=== PATIENT | female | born 1975 | race Caucasian/White ===

== ENCOUNTER → 2016-07-25 | Outpatient (CLI) | payer BC ==
--- NOTE | 2016-07-28 13:20 | MM ---
Reason for exam: screening (asymptomatic). Last mammogram was performed 2 years and 4 months ago. Physical Findings: A clinical breast exam by your physician is recommended on an annual basis and results should be correlated with mammographic findings. MG Screening Mammo w CAD Bilateral CC and MLO view(s) were taken. Prior study comparison: March 24, 2014, bilateral MG screening mammo w CAD. The breast tissue is almost entirely fat. No significant changes when compared with prior studies. ASSESSMENT: Negative, BI-RAD 1 RECOMMENDATION: Routine screening mammogram of both breasts in 1 year.
== END | disposition home or self-care (01) ==
LOC: RADMAMWWP 09:50
PROVIDERS: ATTEND Family Medicine
DX: Z12.31 Encounter for screening mammogram for malignant neoplasm of breast (principal)

== ENCOUNTER → 2016-07-27 | Outpatient (CLI) | payer BC ==
[2016-07-27 09:47] VITALS: BP 116/77; PULSE 112; RESP 15; TEMP 98.1; BMI 50.4
[2016-07-27 10:59] LABS: EKG EKG PERFORMED
[2016-07-27 11:42] LABS: CH 30.3; CHCM 33.4; HCT 45.8 % (34.0-46.0); HDW 2.73; HGB 14.9 gm/dL (11.4-16.0); MCH 29.7 pg (25.0-35.0); MCHC 32.5 g/dL (31.0-37.0); MCV 91.4 fL (80.0-100.0); Mean Platelet Volume 6.5; RBC 5.01 m/uL (3.80-5.40); RDW 13.4 % (11.5-15.5); WBC 9.4 k/uL (3.8-10.6)
[2016-07-27 11:52] LABS: ALT 41 U/L (9-52); AST 21 U/L (14-36); Alkaline Phosphatase 36 U/L (38-126); Anion Gap 6 mmol/L; Blood Urea Nitrogen 15 mg/dL (7-17); Calcium 8.9 mg/dL (8.4-10.2); Carbon Dioxide 25 mmol/L (22-30); Chloride 109 mmol/L (98-107); Cholesterol 171 mg/dL (<200); Glucose 70 mg/dL (74-99); HDL Cholesterol 50 mg/dL (40-60); Iron 73 ug/dL (37-170); Non-African American GFR(MDRD) >60 (>60 ml/min/1.73 sqM); Potassium 4.1 mmol/L (3.5-5.1); Sodium 140 mmol/L (137-145); Total Bilirubin 0.9 mg/dL (0.2-1.3); Total Protein 5.6 g/dL (6.3-8.2); Triglycerides 208 mg/dL (<150)
[2016-07-27 12:09] LABS: % Iron Saturation 23.9 % (20-50); Total Iron Binding Capacity 306 ug/dL (265-497)
[2016-07-27 13:04] LABS: Vitamin B12 280 pg/mL (239-931)
[2016-07-27 13:31] LABS: Hemoglobin A1C 5.3 % (4.2-6.1)
--- NOTE | 2016-09-11 22:55 | CONS ---
DATE OF CONSULTATION: 07/27/2016. CHIEF COMPLAINT: Initial bariatric assessment: HISTORY OF PRESENT ILLNESS: Maia Duron is a 41-year-old female who presents for the first time with regards to bariatric assessment. She does have history of adjustable gastric band which she has had moderate troubles including intolerance to adjustments. She comes in today at her height of 5 feet 1.8 inches. Her present weight is 274 pounds. Body mass index of 50.4. [place] body weight 131 pounds. She is 142 pounds overweight. Her highest weight and BMI is 51.8. She reports vomiting including dysphagia with her band. She has also gained weight despite having her band. She developed lower back pain, including bilateral hip pain. She reports knee pain where the right is worse than the left as well as bilateral ankle swelling. She also has snoring with sleep apnea. She has now been diagnosed with hypothyroidism. She has tried caloric restriction including adjustable band where still has troubles with weight loss. Now she presents for further evaluation and management. She does report irritable bowel syndrome, possible Crohn's. She does have family history of diabetes as well as troubles with obesity. PAST MEDICAL HISTORY: 1. Asthma. 2. Seasonal allergies. 3. Hypothyroidism. 4. Obstructive sleep apnea. 5. Osteoarthritis of bilateral knees. 6. Osteoarthritis of bilateral. 7. Bilateral ankle pain secondary to osteoarthritis. 8. Postoperative nausea and vomiting. MEDICATIONS: 1. Singulair. 2. Flonase. 3. Nexium. 4. Zyrtec. ALLERGIES: Denies. SOCIAL HISTORY: History of alcohol use. Denies any tobacco use. FAMILY HISTORY: Pertinent for diabetes. No family history of lupus. Personal family history of irritable bowel syndrome including Crohn's disease. Also has history of morbid obesity. REVIEW OF SYSTEMS: CONSTITUTIONAL: [place] body weight of 131 pounds for her height of 5 feet 1 inches. Body mass index of 51.8. She is 143 pounds overweight. Present weight is 274 pounds. HEENT: No reports of dysphagia or troubles with hearing. Has history of dysphagia with adjustable gastric band. ENDOCRINE: History of thyroid disorders. Denies any diabetes. RESPIRATORY: Has dyspnea on exertion with asthma. Also obstructive sleep apnea. CARDIOVASCULAR: No reports of chest pain or heart attack. GASTROINTESTINAL: Gastroesophageal reflux disease. No reports of blood in stools. No diarrhea, constipation. MUSCULOSKELETAL: Has diffuse osteoarthritis, including problems with bilateral hips, bilateral knees including bilateral ankles. NEUROLOGICAL: No recent stroke or seizure disorder. PSYCHIATRY: Has depression. No reports of suicidal ideation. HEMATOLOGIC: Denies easy bruising or bleeding. PHYSICAL EXAM: VITAL SIGNS: 98.1, 112, 15, 116/77; 5 feet 1 inch, 274 pounds. Body mass index of 51.8. GENERAL: Well-developed female in no acute distress. HEENT: No scleral icterus. Extraocular movements intact. Moist buccal mucosa. NECK: Supple without lymphadenopathy. CHEST: Nonlabored respirations with equal bilateral excursions. CARDIOVASCULAR: Tachycardic. Palpable 2+ distal pulses. NEURO: No focal or lateralizing signs. Cranial nerves 2 through 12 grossly within normal limits. PSYCH: Appropriate affect. Alert and oriented to person, place, and time. LABS: White count 9.4. Hemoglobin 14.9. Chloride 109. Glucose low at 70. Hemoglobin A1C normal at 5.3. Alkaline phosphatase low at 36. Total protein low at 5.6. Triglycerides low at 208. Vitamin D low at 11.7. EKG findings consistent with incomplete right bundle branch block including frequent premature ventricular complexes. ASSESSMENT: 1. Moderate obesity due to excess calories. 2. Body mass index of 51.8. 3. History of obstructive sleep apnea. 4. History of tachycardia. 5. Abnormal EKG. 6. Family history of diabetes type 2. 7. Family history of morbid obesity. 8. Osteoarthritis of the lower back. 9. Osteoarthritis bilateral hips. 10. Osteoarthritis of the bilateral knees. 11. Osteoarthritis of bilateral ankles. 12. Complication of adjustable gastric band. 13. Intolerance to adjustable gastric band. 14. Hypertriglyceridemia. 15. Vitamin D deficiency. PLAN: 1. She has completed a bariatric metabolic panel. 2. TSH level was within normal limits. 3. She has abnormal EKG and as a result recommend evaluation by the ecological economist. 4. Recommend psych assessment per insurance guideline. 5. Medical risk assessment per insurance guidelines. 6. Recommend evaluation by bariatric dietitian regarding bariatric plan, and bariatric diet. 7. Recommend upper endoscopy for further evaluation and management. 8. [place] [facility] collaborative data was reviewed in detail. As she has a band, alternatives including gastrectomy-type such as a sleeve and Adam-En-Y gastric bypass may be a benefit. Thank you very much for this kind consultation. SUMAN
== END | disposition home or self-care (01) ==
LOC: BARWHC3 09:10
PROVIDERS: ATTEND Surgery Plastic and Reconstructive Surgery
DX: Z01.818 Encounter for other preprocedural examination (principal); E66.01 Morbid (severe) obesity due to excess calories; E89.1 Postprocedural hypoinsulinemia; E88.81 Metabolic syndrome and other insulin resistance; D50.8 Other iron deficiency anemias; E44.0 Moderate protein-calorie malnutrition; E55.9 Vitamin D deficiency, unspecified; Z68.43 Body mass index [BMI] 50.0-59.9, adult; G47.30 Sleep apnea, unspecified; E03.9 Hypothyroidism, unspecified; Z72.820 Sleep deprivation
CPT/HCPCS: 80053; 80061; 82306; 82607; 82728; 82746; 83036; 83540; 83550; 84425; 84443; 85027; 93005; 99201

== ENCOUNTER 2016-08-16 09:26 | Day surgery (SDC) | payer BC ==
[2016-08-10 16:09] VITALS: BMI 52.0
[~2016-08-16 09:26] MED LIST: LIDOCAINE 1% 20 ML VIAL (10MG/ML) FOR IV START INTRADERMA PRN
[2016-08-16 09:51] VITALS: RESP 16; TEMP 97.3
[2016-08-16] MEDS: LACTATED RINGERS 1,000 ML IV SCH ×2 (09:58→10:42)
[2016-08-16] MEDS ORDERED: PROPOFOL 10 MG/ML 20 ML VIAL IV ONE (10:44)
[2016-08-16] MEDS ORDERED: LIDOCAINE 1% INJ 10MG/ML (20 ML MDV) ONE (10:44)
--- NOTE | 2016-08-16 10:55 | P.GSHP ---
History of Present Illness H&P Date: 08/16/16 CHIEF COMPLAINT: GERD HISTORY OF PRESENT ILLNESS: The patient is a 41-year-old female who presents reports gastroesophageal reflux disease. Upper endoscopy was offered for further evaluation and management. PAST MEDICAL HISTORY: Please see list. PAST SURGICAL HISTORY: Please see list. MEDICATIONS: Please see list. ALLERGIES: Please see list. SOCIAL HISTORY: No illicit drug use FAMILY HISTORY: No reports of Crohn disease or ulcerative colitis. REVIEW OF ORGAN SYSTEMS: CONSTITUTIONAL: No reports of fevers or chills. GI: Denies any blood in stools or constipation. PHYSICAL EXAM: VITAL SIGNS: Stable GENERAL: Well-developed and pleasant in no acute distress. HEENT: No scleral icterus. Extraocular movements grossly intact. Moist buccal mucosa. NECK: Supple without lymphadenopathy. CHEST: Unlabored respirations. Equal bilateral excursions. CARDIOVASCULAR: Regular rate and rhythm. Distal 2+ pulses. ABDOMEN: Soft, nondistended. MUSCULOSKELETAL: No clubbing, cyanosis, or edema. ASSESSMENT: 1. Gastroesophageal reflux disease PLAN: 1. Recommend proceeding with an upper endoscopy Past Medical History Past Medical History: Asthma, Osteoarthritis (OA), Thyroid Disorder Additional Past Medical History / Comment(s): HYPOTHYROIDISM, mild asthma, back pain, bilateral hip/knee pain (right knee greater than left), bilateral ankle pain with notable swelling in bilateral feet/ankles. History of Any Multi-Drug Resistant Organisms: None Reported Past Surgical History: Bariatric Surgery, Section, Tubal Ligation, Uterine Ablation Additional Past Surgical History / Comment(s): lap band 2008, uterine ablation 2008, x2 Past Anesthesia/Blood Transfusion Reactions: Postoperative Nausea & Vomiting ( PONV) Additional Past Anesthesia/Blood Transfusion Reaction / Comment(s): states that she thinks she is really groggy "for a long time after". 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 No problems with child #2 . Smoking Status: Never smoker Past Alcohol Use History: Rare Additional Past Alcohol Use History / Comment(s): one drink/q3-4mos. Past Drug Use History: None Reported - Past Family History Father Family Medical History: Diabetes Mellitus Additional Family Medical History / Comment(s): morbidly obese, joint replacements bilateral knee, wheelchair bound due to weight/joint problems Mother Additional Family Medical History / Comment(s): morbidly obese, joint replacements bilateral knee Sister(s) Family Medical History: Diabetes Mellitus Additional Family Medical History / Comment(s): sister #1= no hx. sister #2= Frequent BM's (possible IBS) Medications and Allergies Home Medications Medication Instructions Recorded Confirmed Type Cetirizine HCl [Zyrtec] 10 mg PO DAILY 07/27/16 08/16/16 History Fluticasone Propionate [Flonase 1 spray EA NOSTRIL BID 07/27/16 08/16/16 History Allergy Relief] Montelukast [Singulair] 10 mg PO DAILY 07/27/16 08/16/16 History Allergies Allergy/AdvReac Type Severity Reaction Status Date / Time No Known Allergies Allergy Verified 08/10/16 15:51 Surgical - Exam Vital Signs Temp Pulse Resp BP Pulse Ox 97.3 F L 87 16 139/83 98 08/16/16 09:48 08/16/16 09:48 08/16/16 09:48 08/16/16 09:48 08/16/16 09:48
--- NOTE | 2016-08-16 10:58 | P.PCN ---
Date of Procedure: 08/16/16 Preoperative Diagnosis: Postoperative Diagnosis: Procedure(s) Performed: Implants: Indications for Procedure: Operative Findings: Description of Procedure: PREOPERATIVE DIAGNOSIS: Gastroesophageal reflux disease. History of adjustable gastric band. Morbid obesity. Dysphagia. POSTOPERATIVE DIAGNOSIS: Gastroesophageal reflux disease. History of adjustable gastric band. Morbid obesity. Erosive esophagitis. Dysphagia. OPERATION: Esophagogastroduodenoscopy with biopsies along antrum. SURGEON: Denisse Haddad MD ANESTHESIA: MAC. INDICATIONS: The patient is a 41-year-old female who presents with a history of reflux disease and intolerance to her adjustable gastric band. Benefits and risks of the procedure were described. Informed consent was obtained. DESCRIPTION: The patient was brought into the endoscopy suite and laid in the left lateral decubitus position. An Olympus gastroscope was passed along the posterior oropharynx down to the distal esophagus where the squamocolumnar junction was encountered at 38 cm from the incisors. The stomach was entered and minimal bile reflux was found. Additional findings are listed below. Biopsies with cold forceps were obtained of the antrum. The first through third portion of the duodenum was examined and unremarkable. Retroflexion of the scope confirmed Hill grade I lower esophageal valve. No full thickness erosion of adjustable gastric band was identified. The squamocolumnar junction demostrated LA grade C erosive esophagitis. The stomach was desufflated. The patient tolerated the procedure well. FINDINGS: Squamocolumnar junction 38 cm from the incisors. Diaphragmatic hiatus at 40 cm from the incisors. Hill grade I lower esophageal valve. LA grade C erosive esophagitis. No active duodenitis. No full thickness erosion of adjustable gastric band. RECOMMENDATIONS: Upper endoscopy as needed. Plan - Discharge Summary New Discharge Prescriptions: No Action Montelukast [Singulair] 10 mg PO DAILY Fluticasone Propionate [Flonase Allergy Relief] 1 spray EA NOSTRIL BID Cetirizine HCl [Zyrtec] 10 mg PO DAILY Discharge Medication List Cetirizine HCl [Zyrtec] 10 mg PO DAILY 07/27/16 [History] Fluticasone Propionate [Flonase Allergy Relief] 1 spray EA NOSTRIL BID 07/27/16 [History] Montelukast [Singulair] 10 mg PO DAILY 07/27/16 [History]
[2016-08-16 11:30] VITALS: BP 114/58; PULSE 77
== END 2016-08-16 11:43 | disposition home or self-care (01) ==
LOC: ORWHC2ENDO 09:26
PROVIDERS: ATTEND Surgery Plastic and Reconstructive Surgery
DX: K29.50 Unspecified chronic gastritis without bleeding (principal); E66.01 Morbid (severe) obesity due to excess calories; R13.10 Dysphagia, unspecified; K21.0 Gastro-esophageal reflux disease with esophagitis; Z98.84 Bariatric surgery status; E03.9 Hypothyroidism, unspecified; J45.909 Unspecified asthma, uncomplicated; Z79.899 Other long term (current) drug therapy; Z79.51 Long term (current) use of inhaled steroids; Z68.43 Body mass index [BMI] 50.0-59.9, adult
CPT/HCPCS: 81025; 88305; 88342; 43239; J2001; J2704

== ENCOUNTER → 2016-08-30 | Outpatient (CLI) | payer BC ==
[2016-08-30 15:06] VITALS: BP 124/78; PULSE 87; RESP 16; TEMP 98.7; BMI 52.2
--- NOTE | 2016-09-19 18:55 | P.PN ---
Progress Note - Text DATE OF SERVICE: 08/30/2016. CHIEF COMPLAINT: Bariatric assessment: HISTORY OF PRESENT ILLNESS: Maia Duron is a 41-year-old female who presents with complications from her adjustable gastric band. She reported intolerance to adjustments. She reports severe gastroesophageal reflux disease. At her height of 5 feet 1. inches, she weighs 276 pounds with body mass index of 52.3. Her ideal body weight 131 pounds. She is 145 pounds overweight. She reports chronic dysphagia secondary to her adjustable gastric band. She completed an upper endoscopy with findings consistent with severe erosive esophagitis from her band. She reports developing right knee greater than left knee osteoarthritis. She now presents for removal of adjustable gastric band and potential evaluation for gastric bypass. She developed lower back pain, including bilateral hip pain. She also has snoring with sleep apnea. PAST MEDICAL HISTORY: 1. Asthma. 2. Seasonal allergies. 3. Hypothyroidism. 4. Obstructive sleep apnea. 5. Osteoarthritis of bilateral knees. 6. Osteoarthritis of bilateral. 7. Bilateral ankle pain secondary to osteoarthritis. 8. Postoperative nausea and vomiting. MEDICATIONS: 1. Singulair. 2. Flonase. 3. Nexium. 4. Zyrtec. ALLERGIES: Denies. SOCIAL HISTORY: History of alcohol use. Denies any tobacco use. FAMILY HISTORY: Pertinent for diabetes. No family history of lupus. Personal family history of irritable bowel syndrome including Crohn's disease. Also has history of morbid obesity. REVIEW OF SYSTEMS: CONSTITUTIONAL: At her height of 5 feet 1. inches, she weighs 276 pounds with body mass index of 52.3. Her ideal body weight 131 pounds. She is 145 pounds overweight. HEENT: No reports of dysphagia or troubles with hearing. Has history of dysphagia with adjustable gastric band. ENDOCRINE: History of thyroid disorders. Denies any diabetes. RESPIRATORY: Has dyspnea on exertion with asthma. Also obstructive sleep apnea. CARDIOVASCULAR: No reports of chest pain or heart attack. GASTROINTESTINAL: Gastroesophageal reflux disease. No reports of blood in stools. No diarrhea, constipation. MUSCULOSKELETAL: Has diffuse osteoarthritis, including problems with bilateral hips, bilateral knees including bilateral ankles. NEUROLOGICAL: No recent stroke or seizure disorder. PSYCHIATRY: Has depression. No reports of suicidal ideation. HEMATOLOGIC: Denies easy bruising or bleeding. PHYSICAL EXAM: VITAL SIGNS: 5 feet 1 inch, 276 pounds. Body mass index of 52.3 Vital Signs Temp 98.7 F 08/30/16 14:57 Pulse 87 08/30/16 14:57 Resp 16 08/30/16 14:57 BP 124/78 08/30/16 14:57 Pulse Ox GENERAL: Well-developed female in no acute distress. HEENT: No scleral icterus. Extraocular movements intact. Moist buccal mucosa. NECK: Supple without lymphadenopathy. CHEST: Nonlabored respirations with equal bilateral excursions. ABDOMEN: Soft, nondistended, nontender. Waist over 54 inches. CARDIOVASCULAR: Regular rate, regular rhythm. Palpable 2+ distal pulses. NEURO: No focal or lateralizing signs. Cranial nerves 2 through 12 grossly within normal limits. PSYCH: Appropriate affect. Alert and oriented to person, place, and time. LABS: Triglycerides elevated at 208. Vitamin D low at 11.7. EKG findings consistent with incomplete right bundle branch block including frequent premature ventricular complexes. EGD FINDINGS: Squamocolumnar junction 38 cm from the incisors. Diaphragmatic hiatus at 40 cm from the incisors. Hill grade I lower esophageal valve. LA grade C erosive esophagitis. No active duodenitis. No full thickness erosion of adjustable gastric band. ASSESSMENT: 1. Moderate obesity due to excess calories. 2. Body mass index of 52.3 3. History of obstructive sleep apnea. 4. Gastroesophageal reflux disease. 5. Abnormal EKG. 6. Family history of diabetes type 2. 7. Family history of morbid obesity. 8. Osteoarthritis of the lower back. 9. Osteoarthritis bilateral hips. 10. Osteoarthritis of the bilateral knees. 11. Osteoarthritis of bilateral ankles. 12. Complication of adjustable gastric band. 13. Intolerance to adjustable gastric band. 14. Hypertriglyceridemia. 15. Vitamin D deficiency. 16. Dysphagia secondary to adjustable gastric band. PLAN: 1. Her upper endoscopy findings were consistent with erosive esophagitis. With her history of intolerance to band adjustments, recommend adjustable gastric band removal and all components. 2. She has been started on omeprazole for reflux disease. 3. She has previous removal of all fluid from her band with minimal improvement of her symptoms. 4. Recommend evaluation for revision to gastric bypass per insurance guidelines. 5. DVT prophylaxis. 6. Antibiotic prophylaxis. 7. Recommend follow-up with dietitian regarding gastrectomy-type diets. 8. Recommend dietary surveillance and counseling. 9. [place] [facility] collaborative calculator and outcomes with banding, sleeve, gastric bypass were reviewed in detail. 10. Recommend vitamin D supplementation 50,000 units for severe vitamin D deficiency.
== END | disposition home or self-care (01) ==
LOC: BARWHC3 13:36
PROVIDERS: ATTEND Surgery Plastic and Reconstructive Surgery
DX: Z48.815 Encounter for surgical aftercare following surgery on the digestive system (principal); E66.9 Obesity, unspecified; K21.9 Gastro-esophageal reflux disease without esophagitis; M47.816 Spondylosis without myelopathy or radiculopathy, lumbar region; M16.0 Bilateral primary osteoarthritis of hip; M17.0 Bilateral primary osteoarthritis of knee; M19.071 Primary osteoarthritis, right ankle and foot; M19.072 Primary osteoarthritis, left ankle and foot; E55.9 Vitamin D deficiency, unspecified; E78.1 Pure hyperglyceridemia; K95.09 Other complications of gastric band procedure; J45.909 Unspecified asthma, uncomplicated; Z68.43 Body mass index [BMI] 50.0-59.9, adult; Z79.899 Other long term (current) drug therapy; Z98.84 Bariatric surgery status
CPT/HCPCS: 99211

== ENCOUNTER 2016-09-25 06:18 | Day surgery (SDC) | payer BC ==
[2016-09-18 15:04] VITALS: BMI 52.9
[~2016-09-25 06:18] MED LIST changes: +DEXAMETHASONE SOD PHOSPHATE 10 MG/ML 1 ML VIAL IV ONE; +HYDROmorphone 1 MG/ML 1 ML SYRINGE IVP PRN; +LACTATED RINGERS 1,000 ML IV SCH; -LIDOCAINE 1% 20 ML VIAL (10MG/ML) FOR IV START INTRADERMA PRN; +MIDAZOLAM 2 MG/2 ML VIAL IV PRN; +ONDANSETRON 4 MG/2 ML VIAL IVP ONE; +SCOPOLAMINE 1.5MG/72HR PATCH TRANSDERM ONE; +ceFAZolin 2 GM in SODIUM CHLORIDE 0.9% 100 ML IVPB ONE
[2016-09-25 06:49] VITALS: RESP 16
[2016-09-25] MEDS ORDERED: LIDOCAINE 1% 20 ML VIAL (10MG/ML) FOR IV START INTRADERMA ONE (07:04)
--- NOTE | 2016-09-25 07:19 | P.GSHP ---
History of Present Illness H&P Date: 09/25/16 CHIEF COMPLAINT: Bariatric assessment: HISTORY OF PRESENT ILLNESS: Maia Duron is a 41-year-old female who presents with complications from her adjustable gastric band. She reported intolerance to adjustments. She reports severe gastroesophageal reflux disease. At her height of 5 feet 1. inches, she weighs 276 pounds with body mass index of 52.3. Her ideal body weight 131 pounds. She is 145 pounds overweight. She reports chronic dysphagia secondary to her adjustable gastric band. She completed an upper endoscopy with findings consistent with severe erosive esophagitis from her band. She reports developing right knee greater than left knee osteoarthritis. She now presents for removal of adjustable gastric band and potential evaluation for gastric bypass. She developed lower back pain, including bilateral hip pain. She also has snoring with sleep apnea. PAST MEDICAL HISTORY: 1. Asthma. 2. Seasonal allergies. 3. Hypothyroidism. 4. Obstructive sleep apnea. 5. Osteoarthritis of bilateral knees. 6. Osteoarthritis of bilateral. 7. Bilateral ankle pain secondary to osteoarthritis. 8. Postoperative nausea and vomiting. MEDICATIONS: 1. Singulair. 2. Flonase. 3. Nexium. 4. Zyrtec. ALLERGIES: Denies. SOCIAL HISTORY: History of alcohol use. Denies any tobacco use. FAMILY HISTORY: Pertinent for diabetes. No family history of lupus. Personal family history of irritable bowel syndrome including Crohn's disease. Also has history of morbid obesity. REVIEW OF SYSTEMS: CONSTITUTIONAL: At her height of 5 feet 1. inches, she weighs 276 pounds with body mass index of 52.3. Her ideal body weight 131 pounds. She is 145 pounds overweight. HEENT: No reports of dysphagia or troubles with hearing. Has history of dysphagia with adjustable gastric band. ENDOCRINE: History of thyroid disorders. Denies any diabetes. RESPIRATORY: Has dyspnea on exertion with asthma. Also obstructive sleep apnea. CARDIOVASCULAR: No reports of chest pain or heart attack. GASTROINTESTINAL: Gastroesophageal reflux disease. No reports of blood in stools. No diarrhea, constipation. MUSCULOSKELETAL: Has diffuse osteoarthritis, including problems with bilateral hips, bilateral knees including bilateral ankles. NEUROLOGICAL: No recent stroke or seizure disorder. PSYCHIATRY: Has depression. No reports of suicidal ideation. HEMATOLOGIC: Denies easy bruising or bleeding. PHYSICAL EXAM: VITAL SIGNS: 5 feet 1 inch, 276 pounds. Body mass index of 52.3 GENERAL: Well-developed female in no acute distress. HEENT: No scleral icterus. Extraocular movements intact. Moist buccal mucosa. NECK: Supple without lymphadenopathy. CHEST: Nonlabored respirations with equal bilateral excursions. ABDOMEN: Soft, nondistended, nontender. Waist over 54 inches. CARDIOVASCULAR: Regular rate, regular rhythm. Palpable 2+ distal pulses. NEURO: No focal or lateralizing signs. Cranial nerves 2 through 12 grossly within normal limits. PSYCH: Appropriate affect. Alert and oriented to person, place, and time. LABS: Triglycerides elevated at 208. Vitamin D low at 11.7. EKG findings consistent with incomplete right bundle branch block including frequent premature ventricular complexes. EGD FINDINGS: Squamocolumnar junction 38 cm from the incisors. Diaphragmatic hiatus at 40 cm from the incisors. Hill grade I lower esophageal valve. LA grade C erosive esophagitis. No active duodenitis. No full thickness erosion of adjustable gastric band. ASSESSMENT: 1. Moderate obesity due to excess calories. 2. Body mass index of 52.3 3. History of obstructive sleep apnea. 4. Gastroesophageal reflux disease. 5. Abnormal EKG. 6. Family history of diabetes type 2. 7. Family history of morbid obesity. 8. Osteoarthritis of the lower back. 9. Osteoarthritis bilateral hips. 10. Osteoarthritis of the bilateral knees. 11. Osteoarthritis of bilateral ankles. 12. Complication of adjustable gastric band. 13. Intolerance to adjustable gastric band. 14. Hypertriglyceridemia. 15. Vitamin D deficiency. 16. Dysphagia secondary to adjustable gastric band. PLAN: 1. Her upper endoscopy findings were consistent with erosive esophagitis. With her history of intolerance to band adjustments, recommend adjustable gastric band removal and all components. 2. She has been started on omeprazole for reflux disease. 3. She has previous removal of all fluid from her band with minimal improvement of her symptoms. 4. Recommend evaluation for revision to gastric bypass per insurance guidelines. 5. DVT prophylaxis. 6. Antibiotic prophylaxis. 7. Recommend follow-up with dietitian regarding gastrectomy-type diets. 8. Recommend dietary surveillance and counseling. 9. [place] [facility] collaborative calculator and outcomes with banding, sleeve, gastric bypass were reviewed in detail. 10. Recommend vitamin D supplementation 50,000 units for severe vitamin D deficiency. Past Medical History Past Medical History: Asthma, GERD/Reflux, Osteoarthritis (OA), Thyroid Disorder Additional Past Medical History / Comment(s): HYPOTHYROIDISM (NO MEDS), MILD ASTHMA (RARELY NEEDS INHALER), LOW BACK PAIN , RIGHT KNEE PAIN, FREQUENT SWELLING FEET AND ANKLES., LAP BAND., FEELS LIKE FOOD GETS STUCK. History of Any Multi-Drug Resistant Organisms: None Reported Past Surgical History: Bariatric Surgery, Section, Tubal Ligation, Uterine Ablation Additional Past Surgical History / Comment(s): lap band 2008, uterine ablation 2008, x2 , EGD 08/16/16. Past Anesthesia/Blood Transfusion Reactions: Motion Sickness, Postoperative Nausea & Vomiting (PONV) Additional Past Anesthesia/Blood Transfusion Reaction / Comment(s): STATES SLEEPY FOR LONG TIME AFTERWARDS. NEVER RECEIVED BLOOD TRANSFUSION. Additional Psychological History / Comment(s): HX OF POST DEPRESSION. Smoking Status: Never smoker Past Alcohol Use History: Rare Past Drug Use History: None Reported - Past Family History Father Family Medical History: Diabetes Mellitus Additional Family Medical History / Comment(s): morbidly obese, joint replacements bilateral knee, wheelchair bound due to weight/joint problems Mother Additional Family Medical History / Comment(s): morbidly obese, joint replacements bilateral knee Sister(s) Family Medical History: Diabetes Mellitus Additional Family Medical History / Comment(s): sister #1= no hx. sister #2= Frequent BM's (possible IBS) Medications and Allergies Home Medications Medication Instructions Recorded Confirmed Type Cetirizine HCl [Zyrtec] 10 mg PO DAILY 07/27/16 09/25/16 History Fluticasone Propionate [Flonase 1 spray EA NOSTRIL BID 07/27/16 09/25/16 History Allergy Relief] Montelukast [Singulair] 10 mg PO DAILY 07/27/16 09/25/16 History Ergocalciferol [Vitamin D2 50,000 unit PO TU 09/18/16 09/25/16 History (DRISDOL)] Levalbuterol Hfa Inhaler [Xopenex 1 - 2 puff INHALATION Q6HR PRN 09/18/16 History Hfa Inhaler] Allergies Allergy/AdvReac Type Severity Reaction Status Date / Time No Known Allergies Allergy Verified 09/25/16 07:11 Surgical - Exam Vital Signs Temp Pulse Resp BP Pulse Ox 98.5 F 97 16 112/81 98 09/25/16 06:47 09/25/16 06:47 09/25/16 06:47 09/25/16 06:47 09/25/16 06:47
[2016-09-25] MEDS ORDERED: HEPARIN SODIUM,PORCINE 5,000 UNIT/ML 1 ML VIAL SQ ONE (07:20)
[2016-09-25] MEDS ORDERED: GLYCOPYRROLATE 0.2 MG/ML 2 ML VIAL ONE (07:30)
[2016-09-25] MEDS ORDERED: SUCCINYLCHOLINE CHLORIDE VIAL 200 MG/10 ML VIAL IV ONE (07:30)
[2016-09-25] MEDS ORDERED: PROPOFOL 10 MG/ML 20 ML VIAL IV ONE (07:30)
[2016-09-25] MEDS ORDERED: ONDANSETRON 4 MG/2 ML VIAL ONE (07:30)
[2016-09-25] MEDS ORDERED: fentaNYL (PF) 50 MCG/ML 2 ML AMP ONE (07:30)
[2016-09-25] MEDS ORDERED: MIDAZOLAM 2 MG/2 ML VIAL ONE (07:30)
[2016-09-25] MEDS ORDERED: NEOSTIGMINE 1 MG/ML 10 ML VIAL ONE (07:30)
[2016-09-25] MEDS ORDERED: KETOROLAC 30 MG/ML 1 ML VIAL ONE (07:30)
[2016-09-25] MEDS ORDERED: LIDOCAINE 1% INJ 10MG/ML (20 ML MDV) ONE (07:30)
[2016-09-25] MEDS ORDERED: ROCURONIUM BROMIDE 10 MG/ML 10 ML VIAL IV ONE (07:30)
[2016-09-25] MEDS ORDERED: BUPIVACAIN-EPI 0.5%-1:200,000 30 ML VIAL SQ ONE (08:08)
[2016-09-25] MEDS ORDERED: HYDROcodone/APAP 5-325MG 1 EACH TAB PO PRN (08:58)
[2016-09-25] MEDS ORDERED: NALOXONE 0.4 MG/ML 1 ML VIAL IV PRN (08:58)
[2016-09-25] MEDS ORDERED: LACTATED RINGERS 1,000 ML IV ONE ×2 (09:03)
--- NOTE | 2016-09-25 09:07 | P.OP ---
Date of Procedure: 09/25/16 Preoperative Diagnosis: Postoperative Diagnosis: Procedure(s) Performed: Implants: Indications for Procedure: Operative Findings: Description of Procedure: SURGEON: DENISSE HADDAD MD CIGARETTE EXAMINER: NONE. PREOPERATIVE DIAGNOSES: 1. Moderate obesity due to excess calories. 2. Body mass index of 52.3 3. History of obstructive sleep apnea. 4. Gastroesophageal reflux disease. 5. Abnormal EKG. 6. Family history of diabetes type 2. 7. Family history of morbid obesity. 8. Osteoarthritis of the lower back. 9. Osteoarthritis bilateral hips. 10. Osteoarthritis of the bilateral knees. 11. Osteoarthritis of bilateral ankles. 12. Complication of adjustable gastric band. 13. Intolerance to adjustable gastric band. 14. Hypertriglyceridemia. 15. Vitamin D deficiency. 16. Dysphagia secondary to adjustable gastric band. POSTOPERATIVE DIAGNOSES: 1. Moderate obesity due to excess calories. 2. Body mass index of 52.3 3. History of obstructive sleep apnea. 4. Gastroesophageal reflux disease. 5. Abnormal EKG. 6. Family history of diabetes type 2. 7. Family history of morbid obesity. 8. Osteoarthritis of the lower back. 9. Osteoarthritis bilateral hips. 10. Osteoarthritis of the bilateral knees. 11. Osteoarthritis of bilateral ankles. 12. Complication of adjustable gastric band. 13. Intolerance to adjustable gastric band. 14. Hypertriglyceridemia. 15. Vitamin D deficiency. 16. Dysphagia secondary to adjustable gastric band. 17. Fatty liver disease. 18. Diaphragmatic hiatal hernia. 19. Posterior gastric prolapse. OPERATION: 1. Laparoscopic removal of adjustable gastric band and all components. 2. Intraoperative esophagogastroduodenoscopy. ANESTHESIA: General with 30mL 0.50% Sensorcaine with epinephrine. ESTIMATED BLOOD LOSS: 5 mL SPECIMENS REMOVED: Adjustable gastric band and components. COMPLICATIONS: None. INDICATIONS: The patient is a 41-year-old female who presents with prior history of adjustable gastric band. Diagnostic studies were consistent with posterior gastric prolapse as well as severe epigastric abdominal pain. Surgical options were described including revision versus removal of her band. As she has persistent pain and discomfort from the band, she had elected for removal of the adjustable gastric band and port including all components. Benefits and risks of the procedure were described. Informed consent was obtained. DESCRIPTION: The patient was brought into the operating room and laid in supine position. Chemical DVT prophylaxis were given. Bilateral SCDs were placed. Patient was brought into the operating room, transferred a split-leg table. After general induction, which was uncomplicated, the abdomen was prepped and draped in standard sterile fashion. The abdomen was prepped and draped in standard sterile fashion using ChloraPrep as well as Ioban draping. Prior to incision, a timeout protocol was confirmed with the surgical team regarding patient's name, procedure to be performed, including preoperative medications. A 0 degree 5 mm trocar entry was performed and entered into the peritoneal cavity along the left upper quadrant. The abdomen was insufflated to 15 mmHg pressure, which she tolerated well. Diagnostic laparoscopy demonstrated fatty liver disease. The port was palpated at the lateral left costal margin and the band was found underneath the liver. A 15 mm port was placed along the left costal margin. Next a 5 mm port was placed at the left midclavicular line. The patient was placed in steep reverse Trendelenburg position. The port was followed with its tubing to the actual band. The gastrohepatic ligament was actually scarred from prior surgery. Dense adhesions were identified of the greater omentum to the gastric band. The posterior portion of the stomach was prolapsed posteriorly around the ALLERGAN band. Using electro-Bovie cautery, the cicatrix of the port was incised. The band was then freed. The band was unbuckled and cut. The tubing was cut approximately 5 cm distal to the actual adapter. The band was removed in total without injury to the stomach. Hemostasis was excellent. The port was removed from the abdominal cavity via the 15 mm port. Next, attention was brought to the abdominal wall where the lap band port was palpated. An incision was made over the prominence of the port using a #11 blade. Skin was localized with anesthetic. Electro-Bovie cautery was used to enter the capsule around the port. The sutures were cut and the port was removed in total along with the tubing. The tubing was inspected with early fracture of the port tubing along the entry port at the fascia and abdominal cavity secondary to acute angulation. Diagnostic laparoscopy demonstrated complete removal of all foreign body. I then went to the head of the bed to perform intraoperative esophagogastroduodenoscopy to evaluate for gastritis and any full thickness injury to the stomach. An Olympus gastroscope was passed from the posterior oropharynx down to the esophagus, where the squamocolumnar junction was found LA grade A erosive esophagitis, chronic changes. The stomach was entered and no bile reflux was found. Chronic gastritis was found along the antrum without gastric ulcers or duodenitis or duodenal ulcers. Retroflexion of the scope confirmed a Hill grade 2 lower esophageal valve. No full-thickness erosion from the prior band was encountered. No blood was found within the stomach. The stomach was desufflated. The patient tolerated the procedure well. Again, no evidence of leak was encountered from the removal of the band. Along the left upper quadrant 15 mm port site, Jackson Sanchez 0 Vicryl sutures were used to close the fascia. I then went back to the patient's bedside after re-scrubbing. All instruments and pneumoperitoneum were evacuated from the abdominal cavity. The port extraction site was hemostatic. The port site was irrigated using normal saline and hydrogen peroxide approximately, 30 mL. Shannon drain, quarter inch, was placed along the previous port removal site. The skin was closed in layers using 0-Vicryl for the deep dermis and subcutaneous tissue. The rest of the incisions were reapproximated using 4-0 Monocryl in a subcuticular interrupted fashion. Optifoam dressing was placed over the port extraction site and along the left upper quadrant to decrease risk for surgical site infection. At the end of the procedure, needle, sponge and instrument count was verified correct by the surgical elastic knitter. The patient had tolerated the procedure well. An abdominal binder was placed. The patient was transferred to Postanesthesia Care Unit in stable condition. Postoperative findings were discussed with the patient's family who were pleased with the level of care. FINDINGS: 1. Posterior gastric prolapse. 2. LA grade A erosive esophagitis chronic. 3. Hill grade 2 lower esophageal valve. 4. Diaphragmatic hiatal hernia, 3 cm. 5. Hill grade 2 lower esophageal valve. 6. Diaphragmatic hiatus at 35 cm from the incisors. 7. Squamocolumnar kunction at 32 cm from the incisors. 8. Fatty liver disease. Plan - Discharge Summary New Discharge Prescriptions: New Hydrocodone/Acetaminophen [[place] 5-325] 1 each PO Q4HR PRN #15 tab PRN Reason: Pain No Action Montelukast [Singulair] 10 mg PO DAILY Fluticasone Propionate [Flonase Allergy Relief] 1 spray EA NOSTRIL BID Cetirizine HCl [Zyrtec] 10 mg PO DAILY Omeprazole 40 mg PO DAILY #14 capsule. Ergocalciferol [Vitamin D2 (DRISDOL)] 50,000 unit PO TU Levalbuterol Hfa Inhaler [Xopenex Hfa Inhaler] 1 - 2 puff INHALATION Q6HR PRN PRN Reason: Shortness Of Breath Discharge Medication List Cetirizine HCl [Zyrtec] 10 mg PO DAILY 07/27/16 [History] Fluticasone Propionate [Flonase Allergy Relief] 1 spray EA NOSTRIL BID 07/27/16 [History] Montelukast [Singulair] 10 mg PO DAILY 07/27/16 [History] Omeprazole 40 mg PO DAILY #14 capsule. 08/30/16 [Rx] Ergocalciferol [Vitamin D2 (DRISDOL)] 50,000 unit PO TU 09/18/16 [History] Levalbuterol Hfa Inhaler [Xopenex Hfa Inhaler] 1 - 2 puff INHALATION Q6HR PRN [History] Hydrocodone/Acetaminophen [[place] 5-325] 1 each PO Q4HR PRN #15 tab 09/25/16 [Rx] Follow up Appointment(s)/Referral(s): Denisse Haddad MD [STAFF PHYSICIAN] - 1 Week Patient Instructions/Handouts: Exploratory Laparoscopy (DC) Activity/Diet/Wound Care/Special Instructions: No lifting over 5 lbs in 2 weeks. May shower. No bathtub soaks. Discharge Disposition: HOME SELF-CARE
[2016-09-25 09:17] VITALS: TEMP 97.4
[2016-09-25] MEDS ORDERED: HYDROcodone/APAP 5-325MG 1 EACH TAB PO ONE (10:30)
[2016-09-25 11:05] VITALS: BP 115/76; PULSE 79
[2016-09-25] MEDS ORDERED: KETOROLAC 30 MG/ML 1 ML VIAL IVP SCH (12:00)
== END 2016-09-25 11:36 | disposition home or self-care (01) ==
LOC: OR 06:18
PROVIDERS: ATTEND Surgery Plastic and Reconstructive Surgery
DX: K95.09 Other complications of gastric band procedure (principal); R13.19 Other dysphagia; K31.89 Other diseases of stomach and duodenum; E66.01 Morbid (severe) obesity due to excess calories; K21.0 Gastro-esophageal reflux disease with esophagitis; J45.909 Unspecified asthma, uncomplicated; J30.9 Allergic rhinitis, unspecified; Y83.1 Surgical operation with implant of artificial internal device as the cause of abnormal reaction of the patient, or of later complication, without mention of misadventure at the time of the procedure; Z68.43 Body mass index [BMI] 50.0-59.9, adult; Z79.899 Other long term (current) drug therapy; Z79.51 Long term (current) use of inhaled steroids; Z83.3 Family history of diabetes mellitus; K29.50 Unspecified chronic gastritis without bleeding; K44.9 Diaphragmatic hernia without obstruction or gangrene; E55.9 Vitamin D deficiency, unspecified
CPT/HCPCS: 81025; 43774; 43235; J2250; J0330; J1100; J2710; J0690; J2405; J2001; J3010; J1885; J2704

== ENCOUNTER → 2016-10-04 | Outpatient (CLI) | payer BC ==
[2016-10-04 13:15] VITALS: BP 118/66; PULSE 72; TEMP 98.2; BMI 51.7
--- NOTE | 2016-10-28 14:28 | P.PN ---
Progress Note - Text DATE OF SERVICE: 10/04/2016. CHIEF COMPLAINT: Follow-up and removal. HISTORY OF PRESENT ILLNESS: Maia Duron is a 41-year-old female who presents with complications from her adjustable gastric band. Her band was removed on 09/25/2016. No reports of redness. No reports of trouble with swallowing. No reports of fevers or chills. She has lost 3 pounds in 1 month. Gastroesophageal reflux disease has resolved. At her height of 5 feet 1 inches, she weighs 273 pounds with body mass index of 51.7. Her ideal body weight 131 pounds. She is 142 pounds overweight. PHYSICAL EXAM: VITAL SIGNS: 5 feet 1 inch, 273 pounds. Body mass index of 51.7. Vital Signs Temp 98.2 F 10/04/16 13:10 Pulse 72 10/04/16 13:10 Resp BP 118/66 10/04/16 13:10 Pulse Ox GENERAL: Well-developed female in no acute distress. HEENT: No scleral icterus. Extraocular movements intact. Moist buccal mucosa. NECK: Supple without lymphadenopathy. CHEST: Nonlabored respirations with equal bilateral excursions. ABDOMEN: Soft, nondistended. No erythema or signs of infection. Spontaneous drainage of 10 mL serous. Shannon drain removed. CARDIOVASCULAR: Regular rate, regular rhythm. Palpable 2+ distal pulses. NEURO: No focal or lateralizing signs. Cranial nerves 2 through 12 grossly within normal limits. PSYCH: Appropriate affect. Alert and oriented to person, place, and time. ASSESSMENT: 1. Moderate obesity due to excess calories. 2. Body mass index of 52.3 down to 51.7. 3. History of obstructive sleep apnea. 4. Gastroesophageal reflux disease, resolved. 5. Abnormal EKG. 6. Family history of diabetes type 2. 7. Family history of morbid obesity. 8. Osteoarthritis of the lower back. 9. Osteoarthritis bilateral hips. 10. Osteoarthritis of the bilateral knees. 11. Osteoarthritis of bilateral ankles. 12. Complication of adjustable gastric band. 13. Intolerance to adjustable gastric band. 14. Hypertriglyceridemia. 15. Vitamin D deficiency. 16. Dysphagia secondary to adjustable gastric band, resolved. PLAN: 1. Abdominal binder at all times to minimize recurrence of seroma. 2. Recommend follow-up in 2-4 weeks.
== END | disposition home or self-care (01) ==
LOC: BARWHC3 12:46
PROVIDERS: ATTEND Surgery Plastic and Reconstructive Surgery
DX: Z48.815 Encounter for surgical aftercare following surgery on the digestive system (principal); E66.01 Morbid (severe) obesity due to excess calories; Z68.43 Body mass index [BMI] 50.0-59.9, adult; Z98.84 Bariatric surgery status
CPT/HCPCS: 99211

== ENCOUNTER → 2016-10-23 | Outpatient (CLI) | payer BC ==
[2016-10-23 12:58] LABS: Basophils % (A) 0 %; CH 30.8; CHCM 33.6; Eosinophils # (A) 0.3 k/uL (0-0.7); Eosinophils % (A) 4 %; HCT 43.8 % (34.0-46.0); HDW 2.84; HGB 14.4 gm/dL (11.4-16.0); Luc # (Auto) 0.22; Luc % (Auto) 3; Lymphocytes # (A) 2.2 k/uL (1.0-4.8); Lymphocytes % (A) 29 %; MCH 30.3 pg (25.0-35.0); MCHC 32.9 g/dL (31.0-37.0); MCV 92.1 fL (80.0-100.0); Mean Platelet Volume 7.3; Monocytes # (A) 0.5 k/uL (0-1.0); Monocytes % (A) 7 %; Neutrophils # (A) 4.2 k/uL (1.3-7.7); Neutrophils % (A) 57 %; RBC 4.76 m/uL (3.80-5.40); RDW 14.5 % (11.5-15.5); WBC 7.5 k/uL (3.8-10.6); WBC (Perox) 7.48
[2016-10-23 13:08] LABS: ALT 72 U/L (9-52); AST 36 U/L (14-36); Alkaline Phosphatase 47 U/L (38-126); Anion Gap 11 mmol/L; Blood Urea Nitrogen 17 mg/dL (7-17); Calcium 9.2 mg/dL (8.4-10.2); Carbon Dioxide 24 mmol/L (22-30); Chloride 106 mmol/L (98-107); Glucose 86 mg/dL (74-99); Non-African American GFR(MDRD) >60 (>60 ml/min/1.73 sqM); Potassium 3.9 mmol/L (3.5-5.1); Sodium 141 mmol/L (137-145); Total Bilirubin 1.2 mg/dL (0.2-1.3); Total Protein 6.8 g/dL (6.3-8.2)
== END | disposition home or self-care (01) ==
LOC: LABPAT 12:14
PROVIDERS: ATTEND Surgery Plastic and Reconstructive Surgery
DX: Z01.812 Encounter for preprocedural laboratory examination (principal)
CPT/HCPCS: 80053; 85025

== ENCOUNTER → 2016-10-23 | Outpatient (CLI) | payer BC ==
[2016-10-23 15:14] VITALS: BMI 51.6
== END | disposition home or self-care (01) ==
LOC: BARWHC3 08:43
PROVIDERS: ATTEND Surgery Plastic and Reconstructive Surgery
DX: E66.01 Morbid (severe) obesity due to excess calories (principal)
CPT/HCPCS: 97804

== ENCOUNTER → 2016-11-01 | Outpatient (CLI) | payer BC ==
--- NOTE | 2016-12-10 20:51 | P.PN ---
Progress Note - Text DATE OF SERVICE: 11/01/2016. CHIEF COMPLAINT: Bariatric assessment: HISTORY OF PRESENT ILLNESS: Maia Duron is a 41-year-old female who has history of dysphagia and complications from adjustable gastric band. She status post removal of adjustable gastric band 09/25/2016. Since her procedure, she continues to have gastroesophageal reflux disease. She has lost 3 pounds in 1 month. At her height of 5 feet 1 inches, she had weighed 276 pounds with body mass index of 52.3. Her ideal body weight is 131 pounds. Today she comes in weighing 270 pounds. She has lost 6 pounds in 3 months. She is 139 pounds overweight. Secondary to her morbid obesity she has developed osteoarthritis including obstructive sleep apnea. She presents now for evaluation for gastric bypass. PAST MEDICAL HISTORY: 1. Asthma. 2. Seasonal allergies. 3. Hypothyroidism. 4. Obstructive sleep apnea. 5. Osteoarthritis of bilateral knees. 6. Osteoarthritis of bilateral. 7. Bilateral ankle pain secondary to osteoarthritis. 8. Postoperative nausea and vomiting. 9. Gastroesophageal reflux disease. 10. History of dysphagia. 11. History of motion sickness. PAST SURGICAL HISTORY: 1. History of adjustable gastric band placement. 2. History of removal of adjustable gastric band and all components September 2016. 3. Esophagogastroduodenoscopy. 4. Uterine ablation. 5. section. 6. Tubal ligation. MEDICATIONS: 1. Singulair. 2. Flonase. 3. Nexium. 4. Zyrtec. ALLERGIES: Denies. SOCIAL HISTORY: History of alcohol use. Denies any tobacco use. FAMILY HISTORY: Pertinent for diabetes. No family history of lupus. Personal family history of irritable bowel syndrome including Crohn's disease. Also has history of morbid obesity. REVIEW OF SYSTEMS: CONSTITUTIONAL: At her height of 5 feet 1 inches, she had weighed 276 pounds. Body mass index was 52.3. Her ideal body weight 131 pounds. She is 139 pounds overweight. She has lost 3 pounds in 1 month. HEENT: No reports of dysphagia or troubles with hearing. Has history of dysphagia with adjustable gastric band. ENDOCRINE: History of thyroid disorders. Denies any diabetes. RESPIRATORY: Has dyspnea on exertion with asthma. Also obstructive sleep apnea. CARDIOVASCULAR: No reports of chest pain or heart attack. GASTROINTESTINAL: Gastroesophageal reflux disease. No reports of blood in stools. No diarrhea, constipation. MUSCULOSKELETAL: Has diffuse osteoarthritis, including problems with bilateral hips, bilateral knees including bilateral ankles. NEUROLOGICAL: No recent stroke or seizure disorder. PSYCHIATRY: Has depression. No reports of suicidal ideation. HEMATOLOGIC: Denies easy bruising or bleeding. PHYSICAL EXAM: VITAL SIGNS: 5 feet 1 inch, 270 pounds. Body mass index of 51.1 Vital Signs Temp 98.3 F 11/01/16 15:15 Pulse 97 11/01/16 15:15 Resp 16 11/01/16 15:15 BP 130/64 11/01/16 15:15 Pulse Ox GENERAL: Well developed and in no acute distress. Pleasant. HEENT: No sclera icterus. Extraocular movements grossly intact. Moist buccal mucosa. Head is atraumatic, normocephalic. Hears conversational speech. No nasal drainage. NECK: Supple without lymphadenopathy. No JV distention. CHEST: Non-labored respirations and equal bilateral excursions. CARDIOVASCULAR: Regular rate and rhythm. Palpable 2+ radial pulses. ABDOMEN: Soft, nontender. Nondistended. All skin incisions completely granulated. MUSCULOSKELETAL: No clubbing, cyanosis or edema. NEUROLOGIC: No focal or lateralizing signs. PSYCH: Appropriate affect. Alert and oriented to person, place and time. BREAST: There are no palpable lesions along the bilateral breasts. No axillary adenopathy. SKIN: Good skin turgor. Well perfused. ASSESSMENT: 1. Moderate obesity due to excess calories. 2. Body mass index of 52.3 to 51.1 3. History of obstructive sleep apnea. 4. Gastroesophageal reflux disease. 5. Abnormal EKG. 6. Family history of diabetes type 2. 7. Family history of morbid obesity. 8. Osteoarthritis of the lower back. 9. Osteoarthritis bilateral hips. 10. Osteoarthritis of the bilateral knees. 11. Osteoarthritis of bilateral ankles. 12. Complication of adjustable gastric band. 13. Intolerance to adjustable gastric band. 14. Hypertriglyceridemia. 15. Vitamin D deficiency. 16. Dysphagia secondary to adjustable gastric band. PLAN: 1. An 8-page bariatric consent form was reviewed in detail. Benefits and risks of bleeding, infection, leaks, stricture, need for further surgery were described for gastric bypass including nutriitional deficiencies. 2. The [place] bariatric surgical collaborative data was also reviewed in detail with comorbidities and risks as compared with a sleeve, band and sleeve gastrectomy. 3. Inpatient hospitalization over 2 nights is advised. 4. DVT prophylaxis. 5. Antibiotic prophylaxis. 6. Will need 2 week high-protein low caloric diet. 7. Potential robotic approach also described.
== END | disposition home or self-care (01) ==
CPT/HCPCS: 99211

== ENCOUNTER 2016-11-06 05:53 | Inpatient (IN) | payer BC ==
[~2016-11-06 05:53] MED LIST changes: -LACTATED RINGERS 1,000 ML IV SCH; +LIDOCAINE 1% 20 ML VIAL (10MG/ML) FOR IV START INTRADERMA PRN; -MIDAZOLAM 2 MG/2 ML VIAL IV PRN; -ONDANSETRON 4 MG/2 ML VIAL IVP ONE; -ceFAZolin 2 GM in SODIUM CHLORIDE 0.9% 100 ML IVPB ONE; +ceFAZolin 3 GM in SODIUM CHLORIDE 0.9% 100 ML IVPB ONE
[2016-11-06] MEDS: ONDANSETRON 4 MG/2 ML VIAL IVP ONE ×2 (06:32→11:47)
[2016-11-06] MEDS: LACTATED RINGERS 1,000 ML IV SCH (06:32)
[2016-11-06] MEDS ORDERED: ENOXAPARIN 40 MG/0.4 ML SYRINGE SQ STA (06:49)
[2016-11-06] MEDS ORDERED: PANTOPRAZOLE 40 MG/10 ML VIAL IV STA (06:49)
[2016-11-06] MEDS ORDERED: CHLORHEXIDINE GLUCONATE 15 ML CUP MUCOUS MEM STA (06:49)
--- NOTE | 2016-11-06 06:56 | P.GSHP ---
History of Present Illness H&P Date: 11/06/16 CHIEF COMPLAINT: Morbid obesity HISTORY OF PRESENT ILLNESS: Maia Duron is a 41-year-old female who presented initially with complications from her adjustable gastric band. She reported intolerance to adjustments. She reported severe gastroesophageal reflux disease. At her height of 5 feet 1. inches, she weighed 276 pounds with body mass index of 52.3. Her ideal body weight 131 pounds. She was 145 pounds overweight. She reports chronic dysphagia secondary to her adjustable gastric band. She completed an upper endoscopy with findings consistent with severe erosive esophagitis from her band. She reports developing right knee greater than left knee osteoarthritis. She had removal of her adjustable gastric band and now is undergoing a gastric bypass. PAST MEDICAL HISTORY: 1. Asthma. 2. Seasonal allergies. 3. Hypothyroidism. 4. Obstructive sleep apnea. 5. Osteoarthritis of bilateral knees. 6. Osteoarthritis of bilateral. 7. Bilateral ankle pain secondary to osteoarthritis. 8. Postoperative nausea and vomiting. MEDICATIONS: 1. Singulair. 2. Flonase. 3. Nexium. 4. Zyrtec. ALLERGIES: Denies. SOCIAL HISTORY: History of alcohol use. Denies any tobacco use. FAMILY HISTORY: Pertinent for diabetes. No family history of lupus. Personal family history of irritable bowel syndrome including Crohn's disease. Also has history of morbid obesity. REVIEW OF SYSTEMS: CONSTITUTIONAL: At her height of 5 feet 1. inches, she weighed 276 pounds with body mass index of 52.3. Her ideal body weight 131 pounds. She was 145 pounds overweight. HEENT: No reports of dysphagia or troubles with hearing. Has history of dysphagia with adjustable gastric band. ENDOCRINE: History of thyroid disorders. Denies any diabetes. RESPIRATORY: Has dyspnea on exertion with asthma. Also obstructive sleep apnea. CARDIOVASCULAR: No reports of chest pain or heart attack. GASTROINTESTINAL: Gastroesophageal reflux disease. No reports of blood in stools. No diarrhea, constipation. MUSCULOSKELETAL: Has diffuse osteoarthritis, including problems with bilateral hips, bilateral knees including bilateral ankles. NEUROLOGICAL: No recent stroke or seizure disorder. PSYCHIATRY: Has depression. No reports of suicidal ideation. HEMATOLOGIC: Denies easy bruising or bleeding. PHYSICAL EXAM: VITAL SIGNS: 5 feet 1 inch. Body mass index of 50.2 Vital Signs Temp 98.1 F 11/06/16 06:22 Pulse 92 11/06/16 06:22 Resp 18 11/06/16 06:22 BP 122/79 11/06/16 06:22 Pulse Ox 93 L 11/06/16 06:22 Intake & Output 11/05/16 11/05/16 11/06/16 06:59 18:59 06:59 Weight 120.5 kg GENERAL: Well-developed female in no acute distress. HEENT: No scleral icterus. Extraocular movements intact. Moist buccal mucosa. NECK: Supple without lymphadenopathy. CHEST: Nonlabored respirations with equal bilateral excursions. ABDOMEN: Soft, nondistended, nontender. Waist over 54 inches. CARDIOVASCULAR: Regular rate, regular rhythm. Palpable 2+ distal pulses. NEURO: No focal or lateralizing signs. Cranial nerves 2 through 12 grossly within normal limits. PSYCH: Appropriate affect. Alert and oriented to person, place, and time. ASSESSMENT: 1. Moderate obesity due to excess calories. 2. Body mass index of prior 52.3 3. History of obstructive sleep apnea. 4. Gastroesophageal reflux disease. 5. Abnormal EKG. 6. Family history of diabetes type 2. 7. Family history of morbid obesity. 8. Osteoarthritis of the lower back. 9. Osteoarthritis bilateral hips. 10. Osteoarthritis of the bilateral knees. 11. Osteoarthritis of bilateral ankles. 12. Complication of adjustable gastric band. 13. Intolerance to adjustable gastric band. 14. Hypertriglyceridemia. 15. Vitamin D deficiency. 16. Dysphagia secondary to adjustable gastric band. 17. Obstructive sleep apnea. PLAN: 1. A second generation bariatric consent form for a gastric bypass was reviewed including benefits and risks. 2. She has been started on omeprazole for reflux disease. 3. She completed a 2 week high protein, low calorie diet. 4. Inpatient hospitalization more than 2 nights described. 5. DVT prophylaxis. 6. Antibiotic prophylaxis. Past Medical History Past Medical History: Asthma, Thyroid Disorder Additional Past Medical History / Comment(s): FREQUENT SWELLING FEET AND ANKLES. hyperthyroid- no meds History of Any Multi-Drug Resistant Organisms: None Reported Past Surgical History: Bariatric Surgery, Section, Tubal Ligation, Uterine Ablation Additional Past Surgical History / Comment(s): lap band 2008-removed 09/2016, Past Anesthesia/Blood Transfusion Reactions: Motion Sickness, Postoperative Nausea & Vomiting (PONV) Additional Past Anesthesia/Blood Transfusion Reaction / Comment(s): STATES long time to wake up Additional Psychological History / Comment(s): . Smoking Status: Never smoker Past Alcohol Use History: Rare Additional Past Alcohol Use History / Comment(s): . Past Drug Use History: None Reported - Past Family History Father Family Medical History: Diabetes Mellitus Additional Family Medical History / Comment(s): morbidly obese, joint replacements bilateral knee, wheelchair bound due to weight/joint problems Mother Family Medical History: No Reported History Additional Family Medical History / Comment(s): morbidly obese, joint replacements bilateral knee Sister(s) Family Medical History: Diabetes Mellitus Additional Family Medical History / Comment(s): sister #1= no hx. sister #2= Frequent BM's (possible IBS) Medications and Allergies Home Medications Medication Instructions Recorded Confirmed Type Fluticasone Propionate [Flonase 1 spray EA NOSTRIL BID 07/27/16 11/01/16 History Allergy Relief] Montelukast [Singulair] 10 mg PO DAILY 07/27/16 11/01/16 History Ergocalciferol [Vitamin D2 50,000 unit PO TU 09/18/16 11/01/16 History (DRISDOL)] Levalbuterol Hfa Inhaler [Xopenex 1 - 2 puff INHALATION Q6HR PRN 09/18/16 History Hfa Inhaler] Cetirizine HCl [Zyrtec] 10 mg PO DAILY 10/30/16 11/01/16 History Allergies Allergy/AdvReac Type Severity Reaction Status Date / Time No Known Allergies Allergy Verified 11/01/16 17:34 Surgical - Exam Vital Signs Temp Pulse Resp BP Pulse Ox 98.1 F 92 18 122/79 93 L 11/06/16 06:22 11/06/16 06:22 11/06/16 06:22 11/06/16 06:22 11/06/16 06:22
[2016-11-06] MEDS ORDERED: GLYCOPYRROLATE 0.2 MG/ML 2 ML VIAL ONE (07:30)
[2016-11-06] MEDS ORDERED: NEOSTIGMINE 1 MG/ML 10 ML VIAL ONE (07:30)
[2016-11-06] MEDS ORDERED: fentaNYL (PF) 50 MCG/ML 2 ML AMP ONE (07:30)
[2016-11-06] MEDS ORDERED: LIDOCAINE 1% INJ 10MG/ML (20 ML MDV) ONE (07:30)
[2016-11-06] MEDS ORDERED: ROCURONIUM BROMIDE 10 MG/ML 10 ML VIAL IV ONE (07:30)
[2016-11-06] MEDS ORDERED: ONDANSETRON 4 MG/2 ML VIAL ONE (07:30)
[2016-11-06] MEDS ORDERED: SUCCINYLCHOLINE CHLORIDE VIAL 200 MG/10 ML VIAL IV ONE (07:30)
[2016-11-06] MEDS ORDERED: PROPOFOL 10 MG/ML 20 ML VIAL IV ONE (07:30)
[2016-11-06] MEDS ORDERED: MIDAZOLAM 2 MG/2 ML VIAL ONE (07:30)
[2016-11-06] MEDS ORDERED: BUPIVACAIN-EPI 0.5%-1:200,000 30 ML VIAL SQ ONE (08:05)
[2016-11-06] MEDS ORDERED: LACTATED RINGERS 1,000 ML IV ONE ×2 (08:36→09:50)
[2016-11-06] MEDS ORDERED: diphenhydrAMINE 50 MG/ML 1 ML VIAL IVP PRN (11:12)
[2016-11-06] MEDS ORDERED: ONDANSETRON 4 MG/2 ML VIAL IVP PRN (11:12)
[2016-11-06] MEDS ORDERED: NALOXONE 0.4 MG/ML 1 ML VIAL IV PRN (11:12)
--- NOTE | 2016-11-06 11:12 | P.PCN ---
Date of Procedure: 11/06/16 Preoperative Diagnosis: Morbid obesity Postoperative Diagnosis: Same, severe peritoneal adhesions lower abdomen including perigastric Procedure(s) Performed: Laparoscopic lysis of adhesions over hour and a half, laparoscopic Adam-en-Y gastric bypass 75 cm Adam limb antegastric antecolic, intraoperative EGD Implants: Anesthesia: GETA, local Surgeon: Denisse Haddad Estimated Blood Loss (ml): 20 Pathology: none sent Condition: stable Disposition: floor Indications for Procedure: Operative Findings: 1. Thoracic length 21 cm 2. Additional 12-mm port right lower quadrant to address severe lower pelvic adhesions. 3. Tissue reinforced staplers 60 mm purple loads 4, use for creation of gastric pouch. 4. Severe perigastric adhesions. 5. Reinforced gastrojejunal anastomosis. 6. Negative leak test. 7. Temporary anchor upper limb of the left upper quadrant. 8. Divided falciform ligament for continuation of surgery. 9. Ports along the left upper quadrant 2 using prior surgery. 10. No incisional hernias identified from prior surgery. 11. 75 cm Adam limb secondary to moderate tension. 12. Severely thickened transverse mesocolon adherent into the lower pelvis. Description of Procedure:
[2016-11-06 11:19] VITALS: RESP 16
[2016-11-06] MEDS ORDERED: ACETAMINOPHEN IV (For NPO) 1,000 MG in EMPTY BAG 1 BAG IVPB ONE (11:30)
[2016-11-06] MEDS: HYDROmorphone 1 MG/ML 1 ML SYRINGE IVP PRN ×3 (13:03→21:14)
[2016-11-06] MEDS: METOCLOPRAMIDE 5 MG/ML 2 ML VIAL IVP SCH ×2 (13:37→17:39)
[2016-11-06] MEDS: ALBUTEROL NEBULIZED 2.5 MG/3 ML INHALATION SCH ×2 (13:38→15:42)
[2016-11-06] MEDS: 0.9% NACL WITH KCL 20 MEQ/L 1,000 ML IV SCH (13:49)
[2016-11-06] MEDS: AMPICILLIN-SULBACTAM 3 GM in SODIUM CHLORIDE 0.9% 100 ML IVPB SCH (15:29)
[2016-11-06] MEDS: SIMETHICONE 40 MG/0.6 ML DROPS 2,000 MG/30 ML BOTTLE PO SCH (15:56)
[2016-11-06] MEDS: HYOSCYAMINE ORAL DROPS 1.875 MG/15 ML BOTTLE PO SCH ×2 (15:58→22:03)
[2016-11-06] MEDS: LEVALBUTEROL NEB 1.25 MG/3 ML AMP INHALATION SCH (19:01)
[2016-11-07] MEDS: SIMETHICONE 40 MG/0.6 ML DROPS 2,000 MG/30 ML BOTTLE PO SCH ×6 (00:12→23:34)
[2016-11-07] MEDS: HYOSCYAMINE ORAL DROPS 1.875 MG/15 ML BOTTLE PO SCH ×5 (00:13→23:34)
[2016-11-07] MEDS: 0.9% NACL WITH KCL 20 MEQ/L 1,000 ML IV SCH ×4 (00:14→23:33)
[2016-11-07] MEDS: METOCLOPRAMIDE 5 MG/ML 2 ML VIAL IVP SCH ×5 (00:21→23:34)
[2016-11-07] MEDS: AMPICILLIN-SULBACTAM 3 GM in SODIUM CHLORIDE 0.9% 100 ML IVPB SCH (00:23)
[2016-11-07] MEDS: HYDROmorphone 1 MG/ML 1 ML SYRINGE IVP PRN ×6 (01:32→20:30)
[2016-11-07] MEDS: LACTATED RINGERS 1,000 ML IV SCH (06:12)
[2016-11-07 07:04] LABS: Basophils % (A) 0 %; CH 30.3; CHCM 34.1; Eosinophils # (A) 0.1 k/uL (0-0.7); Eosinophils % (A) 1 %; HCT 36.7 % (34.0-46.0); HDW 2.92; HGB 12.3 gm/dL (11.4-16.0); Luc # (Auto) 0.15; Luc % (Auto) 2; Lymphocytes # (A) 0.7 k/uL (1.0-4.8); Lymphocytes % (A) 7 %; MCH 29.9 pg (25.0-35.0); MCHC 33.5 g/dL (31.0-37.0); MCV 89.2 fL (80.0-100.0); Mean Platelet Volume 6.9; Monocytes # (A) 0.5 k/uL (0-1.0); Monocytes % (A) 5 %; Neutrophils # (A) 8.5 k/uL (1.3-7.7); Neutrophils % (A) 85 %; RBC 4.11 m/uL (3.80-5.40); RDW 13.7 % (11.5-15.5); WBC (Perox) 10.65
[2016-11-07 07:17] LABS: Anion Gap 5 mmol/L; Blood Urea Nitrogen 7 mg/dL (7-17); Calcium 7.8 mg/dL (8.4-10.2); Carbon Dioxide 25 mmol/L (22-30); Chloride 109 mmol/L (98-107); Magnesium 1.5 mg/dL (1.6-2.3); Non-African American GFR(MDRD) >60 (>60 ml/min/1.73 sqM); Phosphorous 2.5 mg/dL (2.5-4.5); Potassium 4.1 mmol/L (3.5-5.1); Sodium 139 mmol/L (137-145)
[2016-11-07] MEDS: MONTELUKAST 10 MG TAB PO SCH (08:31)
[2016-11-07] MEDS: ENOXAPARIN 40 MG/0.4 ML SYRINGE SQ SCH (08:31)
[2016-11-07] MEDS: PANTOPRAZOLE 40 MG/10 ML VIAL IV SCH (08:32)
[2016-11-07] MEDS: LEVALBUTEROL NEB 1.25 MG/3 ML AMP INHALATION SCH (09:15)
--- NOTE | 2016-11-07 09:20 | P.PN ---
<Maira Umañanatalie Gonzales - Last Filed: 11/07/16 09:09> Subjective 41-year-old female being seen on rounds. Currently resting in bed. Did review the plan of care with the patient and the patient's visit at the bedside. Patient is to be up ambulating in the Ortiz catheter is to be removed this morning. Patient denies any dizziness lightheadedness chest pain nausea or vomiting. The magnesium is 1.5 this morning which replacement is being given. Hemoglobin 12.3. White count 10. Patient's afebrile patient is stating the pain medication is effective for pain control Patient is postop Laparoscopic lysis of adhesions over hour and a half, laparoscopic Adam-en-Y gastric bypass 75 cm Adam limb antegastric antecolic, intraoperative EGD Objective - Vital Signs Vital signs: Vital Signs Temp 98.7 F 11/07/16 03:00 Pulse 105 H 11/07/16 03:00 Resp 16 11/07/16 04:00 BP 108/60 11/07/16 03:00 Pulse Ox 95 11/07/16 03:00 Intake & Output 11/06/16 11/07/16 11/07/16 18:59 06:59 18:59 Intake Total 2550 Output Total 310 860 Balance 2240 -860 Intake: IV 2550 Output: Urine 290 860 Uretheral (Ortiz) 860 Estimated Blood Loss 20 Other: Voiding Method Indwelling Catheter Indwelling Catheter - Exam GENERAL APPEARANCE: 41-year-old patient is alert, oriented, in no acute distress. VITAL SIGNS: Reviewed HEENT: Head is normocephalic and atraumatic. Pupils are equal and reactive. The nares are patent. Oropharynx is clear without lesions. NECK: Supple without lymphadenopathy. Traches midline. HEART: S1, S2. Regular rate and rhythm. No murmur noted denying chest pain LUNGS: No crackles or wheezes are heard. Adequate air movement bilaterally no shortness of breath ABDOMEN: Soft, slight surgical tenderness, nondistended with good bowel sounds. No peritoneal signs. No palpable organomegaly or masses. EXTREMITIES: Normal skin color and turgor. No cyanosis, rash, ulceration, clubbing or edema. Radial pedal pulses are 2/4 bilaterally. NEUROLOGICAL: No focal deficits. Strength and sensation are grossly intact. - Labs CBC & Chem 7: 11/07/16 06:45 08/22/17 06:45 Labs: Abnormal Lab Results - Last 24 Hours (Table) 11/07/16 11/07/16 Range/Units 06:45 06:45 Neutrophils # 8.5 H (1.3-7.7) k/uL Lymphocytes # 0.7 L (1.0-4.8) k/uL Chloride 109 H (98-107) mmol/L Calcium 7.8 L (8.4-10.2) mg/dL Magnesium 1.5 L (1.6-2.3) mg/dL Assessment and Plan Plan: Impression Laparoscopic lysis of adhesions over hour and a half, laparoscopic Adam-en-Y gastric bypass 75 cm Adam limb antegastric antecolic, intraoperative EGD Morbid obesity BMI 50 Seasonal ALLERGIES Osteoarthritis bilateral knees Obstructive sleep apnea Hypothyroid on supplement Postop nausea vomiting Severe gastroesophageal reflux disease Chronic dysphasia secondary to adjust the bowel gastric band EGD consistent with severe erosive esophagitis from gastric band Chronic right knee pain suspect due to osteoarthritis Hypo-magnesium Plan Magnesium to be replaced keep therapeutic range Continue postop surgical care Increase activity Pain control Further recommendations pending DVT and GI prophylaxis The above impression and plan of care have been discussed and directed by signing physician. Maricel Umaña nurse practitioner acting as scribe for signing physician. <Denisse Haddad N - Last Filed: 11/08/16 17:55> Objective - Vital Signs Vital signs: Vital Signs Temp 97.0 F L 11/08/16 07:55 Pulse 98 11/08/16 07:55 Resp 16 11/08/16 07:55 BP 107/67 11/08/16 07:55 Pulse Ox 94 L 11/08/16 07:55 Intake & Output 11/07/16 11/08/16 11/08/16 18:59 06:59 18:59 Intake Total 1100 Output Total 600 1300 500 Balance -600 -200 -500 Weight 120.5 kg Intake: Intake, IV Titration 800 Amount 0.9% NaCl with KCl 20 Meq 800 /l 1,000 ml @ 100 mls/hr IV .Q10H BOB Rx#: [id number] Oral 300 Output: Urine 600 1300 500 Uretheral (Ortiz) 600 Other: Voiding Method Indwelling Catheter Toilet Toilet # Voids 2 - Labs CBC & Chem 7: 11/08/16 09:29 11/08/16 09:29 Labs: Abnormal Lab Results - Last 24 Hours (Table) 11/08/16 11/08/16 Range/Units 09:29 09:29 WBC 10.7 H (3.8-10.6) k/uL Neutrophils # 7.8 H (1.3-7.7) k/uL Chloride 108 H (98-107) mmol/L BUN 6 L (7-17) mg/dL Calcium 8.2 L (8.4-10.2) mg/dL Assessment and Plan Plan: Patient seen and evaluated with OWNER/PHOTOGRAPHER. Recommend discontinuing inhalers as she has reflex tachycardia as an adverse reaction. Start of clears in the afternoon when her tachycardia resolves. Potential discharge tomorrow, when hemodynamically stable
[2016-11-07 10:34] VITALS: BMI 50.1
[2016-11-07] MEDS: MAGNESIUM SULFATE-D5W PMX 1 GM in DEXTROSE/WATER 1 100ML.BAG IVPB SCH ×4 (11:29→18:21)
[2016-11-07] MEDS ORDERED: SODIUM CHLORIDE 0.9% 1,000 ML BAG ONE (11:45)
[2016-11-07] MEDS: 1: MVI, ADULT NO.4 WITH VIT K 10 ML, THIAMINE 100 MG, FOLIC ACID 1 MG, POTASSIUM CHLORID IV SCH ×6 (11:45)
[2016-11-08] MEDS: HYDROmorphone 1 MG/ML 1 ML SYRINGE IVP PRN ×2 (01:12→05:16)
[2016-11-08] MEDS: METOCLOPRAMIDE 5 MG/ML 2 ML VIAL IVP SCH ×2 (05:14→11:50)
[2016-11-08] MEDS: SIMETHICONE 40 MG/0.6 ML DROPS 2,000 MG/30 ML BOTTLE PO SCH ×2 (05:15→11:46)
[2016-11-08] MEDS: HYOSCYAMINE ORAL DROPS 1.875 MG/15 ML BOTTLE PO SCH ×2 (05:15→11:45)
[2016-11-08] MEDS: MONTELUKAST 10 MG TAB PO SCH (06:50)
[2016-11-08] MEDS: HYDROcodone/APAP 15 ML SOLUTION PO PRN ×2 (06:50→13:37)
[2016-11-08] MEDS: 1: MVI, ADULT NO.4 WITH VIT K 10 ML, THIAMINE 100 MG, FOLIC ACID 1 MG, POTASSIUM CHLORID IV SCH ×18 (06:56→11:54)
[2016-11-08] MEDS: LACTATED RINGERS 1,000 ML IV SCH (06:57)
[2016-11-08] MEDS: PANTOPRAZOLE 40 MG/10 ML VIAL IV SCH (06:58)
[2016-11-08] MEDS: ENOXAPARIN 40 MG/0.4 ML SYRINGE SQ SCH (06:58)
[2016-11-08 07:55] VITALS: BP 107/67; PULSE 98; TEMP 97
[2016-11-08] MEDS ORDERED: BISACODYL 5 MG TABLET.DR PO PRN (08:00)
[2016-11-08] MEDS: 0.9% NACL WITH KCL 20 MEQ/L 1,000 ML IV SCH (09:44)
[2016-11-08 10:17] LABS: Anion Gap 8 mmol/L; Basophils % (A) 0 %; Blood Urea Nitrogen 6 mg/dL (7-17); CH 29.7; Calcium 8.2 mg/dL (8.4-10.2); Carbon Dioxide 24 mmol/L (22-30); Chloride 108 mmol/L (98-107); Eosinophils # (A) 0.4 k/uL (0-0.7); Eosinophils % (A) 4 %; Glucose 95 mg/dL (74-99); HCT 37.7 % (34.0-46.0); HDW 2.86; HGB 12.6 gm/dL (11.4-16.0); Luc % (Auto) 3; Lymphocytes # (A) 1.6 k/uL (1.0-4.8); Lymphocytes % (A) 15 %; MCH 30.4 pg (25.0-35.0); MCHC 33.5 g/dL (31.0-37.0); MCV 90.6 fL (80.0-100.0); Magnesium 2.2 mg/dL (1.6-2.3); Mean Platelet Volume 6.9; Monocytes # (A) 0.6 k/uL (0-1.0); Monocytes % (A) 5 %; Neutrophils # (A) 7.8 k/uL (1.3-7.7); Neutrophils % (A) 73 %; Non-African American GFR(MDRD) >60 (>60 ml/min/1.73 sqM); Potassium 4.2 mmol/L (3.5-5.1); RBC 4.16 m/uL (3.80-5.40); RDW 13.6 % (11.5-15.5); Sodium 140 mmol/L (137-145); WBC 10.7 k/uL (3.8-10.6); WBC (Perox) 10.74
--- NOTE | 2016-11-08 14:00 | P.DS ---
Providers Date of admission: 11/06/16 05:53 Expected date of discharge: 11/08/16 Attending physician: Denisse Haddad Primary care physician: Stated None Hospital Course: 41-year-old female presented to undergo Laparoscopic lysis of adhesions over hour and a half, laparoscopic Adam-en-Y gastric bypass 75 cm Adam limb antegastric antecolic, intraoperative EGD for morbid obesity BMI 50.2. 41-year-old female who presented initially with complications from her adjustable gastric band. Patient reported intolerance to the adjustments. Patient reportedly was experiencing severe gastroesophageal reflux disease. Patient reports chronic dysphasia secondary to her adjustable gastric band. Patient completed an upper endoscopic with findings consistent with severe erosive esophagitis from her band. Patient had removal of her adjustable gastric band was now scheduled to undergo a gastric bypass in which the patient did undergo on November 06. On November 08 patient was felt to be hemodynamically stable and appropriate proceed with a discharge to home. 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 Maricel Umaña nurse practitioner acting as scribe for signing physician. Plan - Discharge Summary New Discharge Prescriptions: New HYDROcodone/APAP [Sugarcreek Elixir 7.5-325Mg/15Ml] 15 ml PO Q6HR PRN #480 ml PRN Reason: Pain Omeprazole 40 mg PO DAILY #90 capsule.dr Discontinued Ergocalciferol [Vitamin D2 (DRISDOL)] 50,000 unit PO TU No Action Montelukast [Singulair] 10 mg PO DAILY Fluticasone Propionate [Flonase Allergy Relief] 1 spray EA NOSTRIL BID Levalbuterol Hfa Inhaler [Xopenex Hfa Inhaler] 1 - 2 puff INHALATION RT-Q6H PRN PRN Reason: Shortness Of Breath Cetirizine HCl [Zyrtec] 10 mg PO DAILY Discharge Medication List Fluticasone Propionate [Flonase Allergy Relief] 1 spray EA NOSTRIL BID 07/27/16 [History] Montelukast [Singulair] 10 mg PO DAILY 07/27/16 [History] Levalbuterol Hfa Inhaler [Xopenex Hfa Inhaler] 1 - 2 puff INHALATION RT-Q6H PRN 09/18/16 [History] Cetirizine HCl [Zyrtec] 10 mg PO DAILY 10/30/16 [History] HYDROcodone/APAP [Sugarcreek Elixir 7.5-325Mg/15Ml] 15 ml PO Q6HR PRN #480 ml [Rx] Omeprazole 40 mg PO DAILY #90 capsule. 11/08/16 [Rx] Follow up Appointment(s)/Referral(s): Denisse Haddad MD [STAFF PHYSICIAN] - 11/13/16 2:00 pm Patient Instructions/Handouts: Nutrition after Bariatric Surgery (GEN), Adam- en-Y Gastric Bypass (DC) Activity/Diet/Wound Care/Special Instructions: Start protein shakes this Sunday. Please take Omeprazole. Discharge Disposition: HOME SELF-CARE
--- NOTE | 2016-12-03 18:17 | P.OP ---
Date of Procedure: 11/06/16 Description of Procedure: SURGEON: TEJ SPANN MD COLLECTIONS SPECIALIST: KRISTA FLORES PRE-OPERATIVE DIAGNOSES: 1. Moderate obesity due to excess calories. 2. Body mass index of prior 52.3 3. History of obstructive sleep apnea. 4. Gastroesophageal reflux disease. 5. Obstructive sleep apnea. 6. Family history of diabetes type 2. 7. Family history of morbid obesity. 8. Osteoarthritis of the lower back. 9. Osteoarthritis bilateral hips. 10. Osteoarthritis of the bilateral knees. 11. Osteoarthritis of bilateral ankles. 12. Previous history of complications from adjustable gastric band. 13. Hypertriglyceridemia. 14. Vitamin D deficiency. POSTOPERATIVE DIAGNOSES: 1. Moderate obesity due to excess calories. 2. Body mass index of prior 52.3 3. History of obstructive sleep apnea. 4. Gastroesophageal reflux disease. 5. Obstructive sleep apnea. 6. Family history of diabetes type 2. 7. Family history of morbid obesity. 8. Osteoarthritis of the lower back. 9. Osteoarthritis bilateral hips. 10. Osteoarthritis of the bilateral knees. 11. Osteoarthritis of bilateral ankles. 12. Previous history of complications from adjustable gastric band. 13. Hypertriglyceridemia. 14. Vitamin D deficiency. 15. Severe peritoneal adhesions of the lower abdomen and perigastric. OPERATION: 1. Laparoscopic Adam-en-Y gastric bypass, 75 cm antecolic antegastric Adam limb with 25 mm Orvil. 2. Laparoscopic lysis of adhesions over 1.5 hours involving pelvis including perigastric. 3. Intraoperative esophagogastrojejunoscopy. ANESTHESIA: General with local anesthetic. ESTIMATED BLOOD LOSS: 20 mL COMPLICATIONS: None. Operative Findings: 1. Thoracic length 21 cm 2. Additional 12-mm port right lower quadrant to address severe lower pelvic adhesions. 3. Tissue reinforced staplers 60 mm purple loads 4, use for creation of gastric pouch. 4. Severe perigastric adhesions. 5. Reinforced gastrojejunal anastomosis. 6. Negative leak test. 7. Temporary anchor upper limb of the left upper quadrant. 8. Divided falciform ligament for continuation of surgery. 9. Severely thickened transverse mesocolon adherent into the lower pelvis. 10. No incisional hernias identified from prior surgery. 11. 75 cm Adam limb secondary to moderate tension. INDICATIONS: Maia Duron is a 41-year-old female who presented initially with complications from her adjustable gastric band. She reported intolerance to adjustments. She reported severe gastroesophageal reflux disease. At her height of 5 feet 1 inches, she weighed 276 pounds with body mass index of 52.3. Her ideal body weight is 131 pounds. She was 145 pounds overweight. She reports chronic dysphagia secondary to her adjustable gastric band. She completed an upper endoscopy with findings consistent with severe erosive esophagitis from her band. She reports developing right knee greater than left knee osteoarthritis. She had removal of her adjustable gastric band and now is undergoing a gastric bypass. She has elected for a Adam-en-Y gastric bypass. Benefits and risks of the procedure, including increased risk for leak, surgical complications, nausea, vomiting, gastrointestinal anastomotic stricture, were described at length via a second-generation bariatric consent form. She had given informed consent. DESCRIPTION: The patient was brought into the operating room theater. She was placed on a split leg table. Preoperatively she had received Lovenox subcutaneously for DVT prophylaxis. Additionally she had undergone Peridex oral solution as an oral decontaminant. After general induction, the abdomen was prepped and draped in standard sterile fashion. A Ortiz catheter was placed. At her height of approximately 5 feet 1 inch, her height from her xiphoid to her umbilicus was 21 cm. Initial attention was brought along the left upper quadrant, whereby a zero-degree 10 mm trocar laparoscopic trocar entry was performed at the left upper abdomen. The abdominal cavity was entered. A 12-mm port was placed along the left lateral abdominal wall. Next a 12 mm port was placed approximately 15 cm distal and off to the left of midline for placement of the camera port. Additional two 12 mm trocars were placed along the right upper abdomen at the right costal margin including the right midclavicular line in a V-type fashion. Diagnostic laparoscopy demonstrated no injury to the bowel, viscera or mesentery. Severe abdominal adhesions were identified involving the lower pelvis including perigastric as well as greater omentum to the abdominal wall. The small bowel was unremarkable in appearance. The liver surface was smooth including along the edge was sharp consistent with a 2 week high-protein low caloric diet. No large diaphragmatic hiatal hernia was identified. Another 12 mm port was placed along the right lower quadrant. Adhesions along the lower pelvis of the greater omentum to the anterior abdominal wall were addressed using a combination of blunt dissection including Sonicision for over one hour. The ligament of Treitz was identified and measured 60 cm antegrade. The jejunum was divided at this point. The biliopancreatic limb was held in place by the program support assistant. The blind jejunal limb was marked using a Shannon drain and 2-0 silk Endo Stitch. The Adam limb was then measured 150 cm distally. Her mesentery was short preventing tension of the jejunojejunostomy at 150 cm Adam limb. At 75 cm along the antemesenteric border of the Adam limb, a jejunojejunostomy was proposed whereby enterotomies were created along the biliopancreatic limb including the Adam limb. A bidirectional fire was performed whereby from the surgeon's end a 45 mm kaiser load was fired. From the program support assistant's end a separate 45 mm firing had occurred, creating a 90 mm jejunojejunostomy. The defect was then closed using a 60 mm kaiser load. The jejunojejunostomy was found to be hemostatic. The Adam limb was brought proximally and tacked to the anterior abdominal wall of the left upper quadrant. Attention was now brought to the creation of the gastrojejunostomy. The transverse mesocolon was cleaved using a Sonicision. The transverse mesocolon was thickened. Placement of a medium-sized Julio liver retractor was used to elevate the left lobe of the liver for greater visualization of the upper abdomen, particularly the superior pole of the stomach. The Julio liver retractor was held in place using an iron supply chain intern. Dense scar tissue was found along the superior pole of stomach from her previous adjustable gastric band. The previous band capsule was identified and dissected. The gastric gastric plication suture was taken down using Sonicision. The lesser curvature including lesser sac was scarred for which careful dissection was performed to identify the gastric veins. Extensive lysis of adhesions had occurred for over an hour to address the perigastric adhesions. Additionally, the falciform ligament was divided using Sonicision. Along the lesser curvature of the stomach between the second and third veins, dissection was made along the retrogastric space to allow first firing of the [employer] Tri-Staple purple load. Tissue reinforced staplers were used. Once adequately mobilized, an initial firing using a 60 mm purple load was performed perpendicular to the lesser curvature of the stomach. To completely divide the pouch from the remnant stomach, three 60 mm purple loads were fired towards the angle of His. Care was taken to avoid any creation of gastric gastric fistulas. Once the stomach was completely divided, attention was brought to placement of the Orvil. The patient was Mallampati 2. Using the help of the nurse staff scientist, a 25 mm Orvil was placed along the posterior oropharynx and advanced into the pouch. The Orvil was placed anterior to the staple line. A gastrotomy was created for removal of the tubing. Once the sutures were encountered these were divided in the tubing and Orvil were disconnected. Using aseptic technique all ports and instruments and gloves were exchanged after handling of the Orvil tubing. Patient was then placed in reverse Trendelenburg. As the Orvil had been placed, the blind jejunal limb was brought proximally into the upper abdomen. No tension or torsion was found upon the Adam limb, which was brought along the upper abdomen. The blind jejunal limb was opened using a cordless Harmonic scalpel. The 25mm EEA stapler was brought through the anterior lateral port site from the program support assistant's end. The EEA stapler was brought through the open jejunal limb and its needle was deployed at the antimesenteric border where the anvil were mated for approximately 1 minute upon firing. The stapler was removed. Donuts were found to be intact but thin. The open jejunal limb defect was closed using a 60 mm kaiser load. No redundant jejunal limb was allow to decrease risk of candycane syndrome. Additionally, the anastomosis was reinforced using 2-0 Vicryl at the 3:00 and 9 o'clock position. Closure of the mesenteric defects was performed, initially of the Burk defect using 2-0 silk on an Endo Stitch and a Lapra-Ty. Attention was brought to closure of the jejunojejunostomy mesenteric defect, also closed in a similar fashion. I then went to the head of the bed to perform the esophagogastrojejunoscopy and a leak test. An Olympus gastroscope was passed along the posterior oropharynx. The scope was passed down to the proximal portion of the pouch, whereby no active bleeding was encountered. Excellent visualization of the gastrojejunostomy anastomosis, including the Adam limb was encountered for which endoscopic image was obtained. The anastomosis was found to be patent. The gastrointestinal tract was desufflated. No evidence of intraoperative leak was encountered. I then went back to the bedside of the patient, whereby with coordinated effort of the program support assistant, the fluid from the leak test was aspirated from the upper abdominal cavity. Tisseel was placed circumferentially over the anastomosis. All instruments and pneumoperitoneum were evacuated from the abdominal cavity. The port correlating with the EEA stapler device was copiously irrigated with 3 L of warm normal saline solution. The fascial defect was closed using a Jackson Sanchez and 0 Vicryl in a [id number] fashion. The incisions were also cleansed with hydrogen peroxide. The rest of incisions were reapproximated using 3-0 Vicryl for deep subcutaneous tissue and dermis followed by 4-0 Monocryl in a running subcuticular fashion. Dermabond was applied to the skin. At the end of the procedure, needle, sponge and instrument count had been verified correct by the neurosurgical nurse practitioner. She had tolerated the procedure well and was taken to the postanesthesia unit in stable condition.
== END 2016-11-08 14:37 | disposition home or self-care (01) | DRG 620 ==
LOC: 2ORWHC 05:53 → 3SUR 10:59
PROVIDERS: ADMIT Surgery Plastic and Reconstructive Surgery; ATTEND Surgery Plastic and Reconstructive Surgery
PROC: 0DNW4ZZ Release Peritoneum, Percutaneous Endoscopic Approach (ICD-10-PCS; 2016-11-06)
PROC: 0DJ08ZZ Inspection of Upper Intestinal Tract, Via Natural or Artificial Opening Endoscopic (ICD-10-PCS; 2016-11-06)
PROC: 0D164ZA Bypass Stomach to Jejunum, Percutaneous Endoscopic Approach (ICD-10-PCS; principal; 2016-11-06 07:30)
DX: E66.01 Morbid (severe) obesity due to excess calories (principal); K22.10 Ulcer of esophagus without bleeding; Z68.43 Body mass index [BMI] 50.0-59.9, adult; R13.19 Other dysphagia; E83.42 Hypomagnesemia; K66.0 Peritoneal adhesions (postprocedural) (postinfection); K21.9 Gastro-esophageal reflux disease without esophagitis; N73.6 Female pelvic peritoneal adhesions (postinfective); K91.0 Vomiting following gastrointestinal surgery; M19.071 Primary osteoarthritis, right ankle and foot; M19.072 Primary osteoarthritis, left ankle and foot; M16.0 Bilateral primary osteoarthritis of hip; M17.0 Bilateral primary osteoarthritis of knee; E55.9 Vitamin D deficiency, unspecified; J45.909 Unspecified asthma, uncomplicated; E03.9 Hypothyroidism, unspecified; G47.33 Obstructive sleep apnea (adult) (pediatric); G89.29 Other chronic pain; M47.9 Spondylosis, unspecified; E78.1 Pure hyperglyceridemia; Z79.899 Other long term (current) drug therapy; Z71.3 Dietary counseling and surveillance
CPT/HCPCS: 80048; 80051; 82310; 82565; 83735; 84100; 84520; 85025; 94640; 94760; 94762

== ENCOUNTER → 2016-11-10 | Outpatient (CLI) | payer BC ==
[~2016-11-10] MED LIST changes: -DEXAMETHASONE SOD PHOSPHATE 10 MG/ML 1 ML VIAL IV ONE; -HYDROmorphone 1 MG/ML 1 ML SYRINGE IVP PRN; -LIDOCAINE 1% 20 ML VIAL (10MG/ML) FOR IV START INTRADERMA PRN; +ONDANSETRON 4 MG/2 ML VIAL IVP ONE; -SCOPOLAMINE 1.5MG/72HR PATCH TRANSDERM ONE; -ceFAZolin 3 GM in SODIUM CHLORIDE 0.9% 100 ML IVPB ONE
[2016-11-10 14:35] VITALS: BP 144/87; PULSE 79; RESP 18; TEMP 98.8
[2016-11-10] MEDS: SODIUM CHLORIDE 0.9% 1,000 ML IV SCH ×2 (14:43→15:35)
== END | disposition home or self-care (01) ==
LOC: PROCWHC3 14:21
PROVIDERS: ATTEND Surgery Plastic and Reconstructive Surgery
DX: E86.0 Dehydration (principal)
CPT/HCPCS: 96360; 96361; 96375; J2405

== ENCOUNTER → 2016-11-13 | Outpatient (CLI) | payer BC ==
--- NOTE | 2016-12-16 15:31 | P.PN ---
Progress Note - Text DATE OF SERVICE: 11/13/2016. CHIEF COMPLAINT: Bariatric assessment: HISTORY OF PRESENT ILLNESS: Maia Duron is a 41-year-old female who is status post removal of adjustable gastric band 09/25/2016 followed by robotic assisted Adam-en-Y gastric bypass 11/06/16. She denies any abdominal pain. She is tolerating liquids. No reports of fevers or chills. No reports of infection. She has nausea. At her height of 5 feet 1 inches, she had weighed 276 pounds with body mass index of 52.3. Her ideal body weight is 131 pounds. Today she comes in weighing 264 pounds. She has lost 12 pounds in 4 months. She has lost another 6 pounds in 3 weeks. She is 133 pounds overweight. PHYSICAL EXAM: VITAL SIGNS: 5 feet 1 inch, 264 pounds. Body mass index of 50.0 Vital Signs Temp 98.0 F 11/13/16 12:55 Pulse 87 11/13/16 12:55 Resp 16 11/13/16 12:55 BP 126/86 11/13/16 12:55 Pulse Ox GENERAL: Well developed and in no acute distress. Pleasant. HEENT: No sclera icterus. Extraocular movements grossly intact. Moist buccal mucosa. Head is atraumatic, normocephalic. Hears conversational speech. No nasal drainage. NECK: Supple without lymphadenopathy. No JV distention. CHEST: Non-labored respirations and equal bilateral excursions. CARDIOVASCULAR: Regular rate and rhythm. Palpable 2+ radial pulses. ABDOMEN: Soft, nontender. Nondistended. No cellulitis or infection. MUSCULOSKELETAL: No clubbing, cyanosis or edema. NEUROLOGIC: No focal or lateralizing signs. PSYCH: Appropriate affect. Alert and oriented to person, place and time. ASSESSMENT: 1. Moderate obesity due to excess calories. 2. Body mass index of 52.3 to 50.0. 3. History of obstructive sleep apnea. 4. Status post gastric bypass. 5. Dehydration secondary to low oral intake. PLAN: 1. Continue with liquid diet. Protein shakes at least 75 g daily. 2. Fluid hydration of 64 ounces daily. 3. Follow-up in 1 week. 4. Recommend IV fluid hydration.
== END | disposition home or self-care (01) ==
CPT/HCPCS: 97803; 99211

== ENCOUNTER → 2016-11-13 | Outpatient (CLI) | payer BC ==
[2016-11-13 12:01] VITALS: BP 132/81; PULSE 90; RESP 16; TEMP 97.9
[2016-11-13] MEDS: SODIUM CHLORIDE 0.9% 1,000 ML IV SCH ×2 (12:13→13:05)
[2016-11-13 12:23] LABS: CH 30.8; CHCM 34.1; HCT 39.9 % (34.0-46.0); HDW 3.17; MCH 29.6 pg (25.0-35.0); MCHC 32.6 g/dL (31.0-37.0); MCV 90.9 fL (80.0-100.0); Mean Platelet Volume 7.1; RBC 4.39 m/uL (3.80-5.40); RDW 13.8 % (11.5-15.5)
[2016-11-13 12:36] LABS: ALT 48 U/L (9-52); AST 22 U/L (14-36); Alkaline Phosphatase 57 U/L (38-126); Anion Gap 11 mmol/L; Blood Urea Nitrogen 14 mg/dL (7-17); Calcium 9.4 mg/dL (8.4-10.2); Carbon Dioxide 26 mmol/L (22-30); Chloride 104 mmol/L (98-107); Glucose 90 mg/dL (74-99); Non-African American GFR(MDRD) >60 (>60 ml/min/1.73 sqM); Potassium 3.8 mmol/L (3.5-5.1); Sodium 141 mmol/L (137-145); Total Bilirubin 0.7 mg/dL (0.2-1.3); Total Protein 6.2 g/dL (6.3-8.2)
== END ==
LOC: PROCWHC3 11:48
PROVIDERS: ATTEND Surgery Plastic and Reconstructive Surgery
DX: E86.0 Dehydration (principal)
CPT/HCPCS: 36415; 80053; 85027; 96360; 96361

== ENCOUNTER → 2016-11-29 | Outpatient (CLI) | payer BC ==
[2016-11-29 16:07] VITALS: BP 134/73; PULSE 94; RESP 16; TEMP 98.3; BMI 47.9
[2016-11-29 17:09] LABS: CH 29.6; CHCM 33.5; HCT 41.2 % (34.0-46.0); HDW 3.24; HGB 13.9 gm/dL (11.4-16.0); MCHC 33.8 g/dL (31.0-37.0); MCV 88.9 fL (80.0-100.0); Mean Platelet Volume 6.6; RBC 4.63 m/uL (3.80-5.40); RDW 13.9 % (11.5-15.5); WBC 6.1 k/uL (3.8-10.6)
[2016-11-29 17:14] LABS: INR 1.1 (<1.2); Partial Thromboplastin Time 22.8 sec (22.0-30.0); Prothrombin Time 11.2 sec (9.0-12.0)
[2016-11-29 17:15] LABS: ALT 57 U/L (9-52); AST 28 U/L (14-36); Alkaline Phosphatase 53 U/L (38-126); Anion Gap 13 mmol/L; Blood Urea Nitrogen 14 mg/dL (7-17); Calcium 9.5 mg/dL (8.4-10.2); Carbon Dioxide 20 mmol/L (22-30); Chloride 105 mmol/L (98-107); Cholesterol 148 mg/dL (<200); Glucose 97 mg/dL (74-99); HDL Cholesterol 38 mg/dL (40-60); Iron 43 ug/dL (37-170); Magnesium 1.7 mg/dL (1.6-2.3); Non-African American GFR(MDRD) >60 (>60 ml/min/1.73 sqM); Phosphorus 3.1 mg/dL (2.5-4.5); Sodium 138 mmol/L (137-145); Total Bilirubin 0.8 mg/dL (0.2-1.3); Total Protein 6.9 g/dL (6.3-8.2)
[2016-11-29 17:25] LABS: Total Iron Binding Capacity 286 ug/dL (265-497)
[2016-11-29 18:03] LABS: Vitamin B12 463 pg/mL (239-931)
[2016-11-29 21:06] LABS: Hemoglobin A1C 5.1 % (4.2-6.1)
[2016-12-01 19:03] LABS: Selenium 100 mcg/L (63-160)
--- NOTE | 2016-12-17 00:48 | P.PN ---
Progress Note - Text DATE OF SERVICE: 11/29/2016. CHIEF COMPLAINT: Bariatric assessment: HISTORY OF PRESENT ILLNESS: Maia Duron is a 41-year-old female who is status post removal of adjustable gastric band 09/25/2016 followed by robotic assisted Adam-en-Y gastric bypass 11/06/16. She denies any abdominal pain. She is tolerating liquids. No reports of fevers or chills. She has had low oral intake requiring IV infusions. She reports discomfort along her left lower quadrant incision. She has started her multivitamins. She is more than 1 month out from her procedure. At her height of 5 feet 1 inches, she had weighed 276 pounds with body mass index of 52.3. Her ideal body weight is 131 pounds. Today she comes in weighing 253 pounds. She has lost 11 pounds in 2 weeks. She has lost 23 pounds in 1 month. She is 122 pounds overweight. PHYSICAL EXAM: VITAL SIGNS: 5 feet 1 inch, 253 pounds. Body mass index of 50.0 Vital Signs Temp 98.3 F 11/29/16 16:06 Pulse 94 11/29/16 16:06 Resp 16 11/29/16 16:06 BP 134/73 11/29/16 16:06 Pulse Ox GENERAL: Well developed and in no acute distress. Pleasant. HEENT: No sclera icterus. Extraocular movements grossly intact. Moist buccal mucosa. Head is atraumatic, normocephalic. Hears conversational speech. No nasal drainage. NECK: Supple without lymphadenopathy. No JV distention. CHEST: Non-labored respirations and equal bilateral excursions. CARDIOVASCULAR: Regular rate and rhythm. Palpable 2+ radial pulses. ABDOMEN: Soft, nontender. Nondistended. Well-healed incisions. MUSCULOSKELETAL: No clubbing, cyanosis or edema. NEUROLOGIC: No focal or lateralizing signs. PSYCH: Appropriate affect. Alert and oriented to person, place and time. ASSESSMENT: 1. Moderate obesity due to excess calories. 2. Body mass index of 52.3 to 48.0. 3. History of obstructive sleep apnea. 4. Status post gastric bypass. 5. Dehydration secondary to low oral intake. PLAN: 1. Recommend bariatric metabolic panel as she is 1 month out. 2. Omeprazole has been written for her for pouch care. 3. Oral intake of fluids 64 ounces daily. LABS: Vitamin A is low. Pre-albumin low. Recommend vitamin A supplement 8000 units daily. Protein intake up 75 g advised. Laboratory Last Values WBC 6.1 k/uL (3.8-10.6) 11/29/16 16:41 RBC 4.63 m/uL (3.80-5.40) 11/29/16 16:41 Hgb 13.9 gm/dL (11.4-16.0) 11/29/16 16:41 Hct 41.2 % (34.0-46.0) 11/29/16 16:41 MCV 88.9 fL (80.0-100.0) 11/29/16 16:41 MCH 30.0 pg (25.0-35.0) 11/29/16 16:41 MCHC 33.8 g/dL (31.0-37.0) 11/29/16 16:41 RDW 13.9 % (11.5-15.5) 11/29/16 16:41 Plt Count 285 k/uL (150-450) 11/29/16 16:41 PT 11.2 sec (9.0-12.0) 11/29/16 16:41 INR 1.1 (<1.2) 11/29/16 16:41 APTT 22.8 sec (22.0-30.0) 11/29/16 16:41 Sodium 138 mmol/L (137-145) 11/29/16 16:41 Potassium 4.0 mmol/L (3.5-5.1) 11/29/16 16:41 Chloride 105 mmol/L (98-107) 11/29/16 16:41 Carbon Dioxide 20 mmol/L (22-30) L 11/29/16 16:41 Anion Gap 13 mmol/L 11/29/16 16:41 BUN 14 mg/dL (7-17) 11/29/16 16:41 Creatinine 0.60 mg/dL (0.52-1.04) 11/29/16 16:41 Est GFR (MDRD) Af Amer >60 (>60 ml/min/1.73 sqM) 11/29/16 16:41 Est GFR (MDRD) Non-Af >60 (>60 ml/min/1.73 sqM) 11/29/16 16:41 Glucose 97 mg/dL (74-99) 11/29/16 16:[address] Glu mg/dL 100 mg/dL 11/29/16 16:41 Hemoglobin A1c 5.1 % (4.2-6.1) 11/29/16 16:41 Calcium 9.5 mg/dL (8.4-10.2) 11/29/16 16:41 Phosphorus 3.1 mg/dL (2.5-4.5) 11/29/16 16:41 Magnesium 1.7 mg/dL (1.6-2.3) 11/29/16 16:41 Iron 43 ug/dL (37-170) 11/29/16 16:41 TIBC 286 ug/dL (265-497) 11/29/16 16:41 % Saturation 15.0 % (20-50) L 11/29/16 16:41 Ferritin 63.2 ng/mL (10.0-291.0) 11/29/16 16:41 Total Bilirubin 0.8 mg/dL (0.2-1.3) 11/29/16 16:41 AST 28 U/L (14-36) 11/29/16 16:41 ALT 57 U/L (9-52) H 11/29/16 16:41 Alkaline Phosphatase 53 U/L (38-126) 11/29/16 16:41 Total Protein 6.9 g/dL (6.3-8.2) 11/29/16 16:41 Albumin 4.3 g/dL (3.5-5.0) 11/29/16 16:41 Prealbumin 15.0 mg/dL (18.0-42.0) L 11/29/16 16:41 Triglycerides 125 mg/dL (<150) 11/29/16 16:41 Cholesterol 148 mg/dL (<200) 11/29/16 16:41 LDL Cholesterol, Calc 85 mg/dL (0-99) 11/29/16 16:41 HDL Cholesterol 38 mg/dL (40-60) L 11/29/16 16:41 Vitamin A 30 ug/dL (38-106) L 11/29/16 16:41 Vitamin B1 53 ug/L (38-122) 11/29/16 16:41 Vitamin B12 463 pg/mL (239-931) 11/29/16 16:41 Vitamin D 25-Hydroxy 31.5 ng/mL (30.0-100.0) 11/29/16 16:41 Folate 12.8 ng/mL 11/29/16 16:41 TSH 2.580 mIU/L (0.465-4.680) 11/29/16 16:41 PTH Intact 34.8 pg/mL (14.0-72.0) 11/29/16 16:41 Copper 1535 ug/L (810-1990) 11/29/16 16:41 Selenium 100 mcg/L (63-160) 11/29/16 16:41 Zinc 78 ug/dL (60-130) 11/29/16 16:41
== END | disposition home or self-care (01) ==
LOC: BARWHC3 15:16
PROVIDERS: ATTEND Surgery Plastic and Reconstructive Surgery
DX: Z48.815 Encounter for surgical aftercare following surgery on the digestive system (principal); E66.01 Morbid (severe) obesity due to excess calories; Z68.42 Body mass index [BMI] 45.0-49.9, adult; E86.0 Dehydration; Z87.09 Personal history of other diseases of the respiratory system; Z98.84 Bariatric surgery status
CPT/HCPCS: 36415; 80053; 80061; 82306; 82525; 82607; 82728; 82746; 83036; 83540; 83550; 83735; 83970; 84100; 84134; 84255; 84425; 84443; 84590; 84630; 85027; 85610; 85730; 97803; 99211

== ENCOUNTER → 2016-12-06 | Outpatient (CLI) | payer BC ==
--- NOTE | 2016-12-17 19:14 | P.PN ---
Subjective DATE OF SERVICE: 12/06/2016. CHIEF COMPLAINT: Status post gastric bypass HISTORY OF PRESENT ILLNESS: Maia Duron is a 41-year-old female who is status post removal of adjustable gastric band 09/25/2016 followed by robotic assisted Adam-en-Y gastric bypass 11/06/16. She has been eating ground beef and having trouble. She reports that she has feeling of dysphagia. No reports of vomiting. No reports of nausea. At her height of 5 feet 1 inches, she had weighed 276 pounds with body mass index of 52.3. Her ideal body weight is 131 pounds. Today she comes in weighing 251 pounds. She has lost 2 pounds in 1 week. She has lost 25 pounds in 1 month. She is 120 pounds overweight. PHYSICAL EXAM: VITAL SIGNS: 5 feet 1 inch, 251 pounds. Body mass index of 47.5. Vital Signs Temp 97.6 F 12/06/16 16:39 Pulse 109 H 12/06/16 16:39 Resp 16 12/06/16 16:39 BP 143/97 12/06/16 16:39 Pulse Ox GENERAL: Well developed and in no acute distress. Pleasant. HEENT: No sclera icterus. Extraocular movements grossly intact. Moist buccal mucosa. Head is atraumatic, normocephalic. Hears conversational speech. No nasal drainage. NECK: Supple without lymphadenopathy. No JV distention. CHEST: Non-labored respirations and equal bilateral excursions. CARDIOVASCULAR: Tachycardic. Palpable 2+ radial pulses. ABDOMEN: Soft, nontender. Nondistended. Well-healed incisions. MUSCULOSKELETAL: No clubbing, cyanosis or edema. NEUROLOGIC: No focal or lateralizing signs. PSYCH: Appropriate affect. Alert and oriented to person, place and time. LABS: Vitamin A is low. Pre-albumin low. Recommend vitamin A supplement 8000 units daily. Protein intake up 75 g advised. Laboratory Last Values WBC 6.1 k/uL (3.8-10.6) 11/29/16 16:41 RBC 4.63 m/uL (3.80-5.40) 11/29/16 16:41 Hgb 13.9 gm/dL (11.4-16.0) 11/29/16 16:41 Hct 41.2 % (34.0-46.0) 11/29/16 16:41 MCV 88.9 fL (80.0-100.0) 11/29/16 16:41 MCH 30.0 pg (25.0-35.0) 11/29/16 16:41 MCHC 33.8 g/dL (31.0-37.0) 11/29/16 16:41 RDW 13.9 % (11.5-15.5) 11/29/16 16:41 Plt Count 285 k/uL (150-450) 11/29/16 16:41 PT 11.2 sec (9.0-12.0) 11/29/16 16:41 INR 1.1 (<1.2) 11/29/16 16:41 APTT 22.8 sec (22.0-30.0) 11/29/16 16:41 Sodium 138 mmol/L (137-145) 11/29/16 16:41 Potassium 4.0 mmol/L (3.5-5.1) 11/29/16 16:41 Chloride 105 mmol/L (98-107) 11/29/16 16:41 Carbon Dioxide 20 mmol/L (22-30) L 11/29/16 16:41 Anion Gap 13 mmol/L 11/29/16 16:41 BUN 14 mg/dL (7-17) 11/29/16 16:41 Creatinine 0.60 mg/dL (0.52-1.04) 11/29/16 16:41 Est GFR (MDRD) Af Amer >60 (>60 ml/min/1.73 sqM) 11/29/16 16:41 Est GFR (MDRD) Non-Af >60 (>60 ml/min/1.73 sqM) 11/29/16 16:41 Glucose 97 mg/dL (74-99) 11/29/16 16:[address] Glu mg/dL 100 mg/dL 11/29/16 16:41 Hemoglobin A1c 5.1 % (4.2-6.1) 11/29/16 16:41 Calcium 9.5 mg/dL (8.4-10.2) 11/29/16 16:41 Phosphorus 3.1 mg/dL (2.5-4.5) 11/29/16 16:41 Magnesium 1.7 mg/dL (1.6-2.3) 11/29/16 16:41 Iron 43 ug/dL (37-170) 11/29/16 16:41 TIBC 286 ug/dL (265-497) 11/29/16 16:41 % Saturation 15.0 % (20-50) L 11/29/16 16:41 Ferritin 63.2 ng/mL (10.0-291.0) 11/29/16 16:41 Total Bilirubin 0.8 mg/dL (0.2-1.3) 11/29/16 16:41 AST 28 U/L (14-36) 11/29/16 16:41 ALT 57 U/L (9-52) H 11/29/16 16:41 Alkaline Phosphatase 53 U/L (38-126) 11/29/16 16:41 Total Protein 6.9 g/dL (6.3-8.2) 11/29/16 16:41 Albumin 4.3 g/dL (3.5-5.0) 11/29/16 16:41 Prealbumin 15.0 mg/dL (18.0-42.0) L 11/29/16 16:41 Triglycerides 125 mg/dL (<150) 11/29/16 16:41 Cholesterol 148 mg/dL (<200) 11/29/16 16:41 LDL Cholesterol, Calc 85 mg/dL (0-99) 11/29/16 16:41 HDL Cholesterol 38 mg/dL (40-60) L 11/29/16 16:41 Vitamin A 30 ug/dL (38-106) L 11/29/16 16:41 Vitamin B1 53 ug/L (38-122) 11/29/16 16:41 Vitamin B12 463 pg/mL (239-931) 11/29/16 16:41 Vitamin D 25-Hydroxy 31.5 ng/mL (30.0-100.0) 11/29/16 16:41 Folate 12.8 ng/mL 11/29/16 16:41 TSH 2.580 mIU/L (0.465-4.680) 11/29/16 16:41 PTH Intact 34.8 pg/mL (14.0-72.0) 11/29/16 16:41 Copper 1535 ug/L (810-1990) 11/29/16 16:41 Selenium 100 mcg/L (63-160) 11/29/16 16:41 Zinc 78 ug/dL (60-130) 11/29/16 16:41 ASSESSMENT: 1. Moderate obesity due to excess calories. 2. Body mass index of 52.3 to 47.5. 3. History of obstructive sleep apnea. 4. Status post gastric bypass. 5. Vitamin A deficiency. PLAN: 1. Recommend upper endoscopy with balloon dilatation. 2. Recommend vitamin A supplement 8000 units daily. 3. Protein intake of 75 g daily advised. Objective - Vital Signs Vital signs: Vital Signs Temp 97.6 F 12/06/16 16:39 Pulse 109 H 12/06/16 16:39 Resp 16 12/06/16 16:39 BP 143/97 12/06/16 16:39 Pulse Ox Intake & Output 12/05/16 12/06/16 12/06/16 18:59 06:59 18:59 Weight 114.05 kg
== END | disposition home or self-care (01) ==
CPT/HCPCS: 99211

== ENCOUNTER 2016-12-08 15:50 | Day surgery (SDC) | payer BC ==
[2016-12-08 16:10] VITALS: RESP 18; TEMP 97.2
[2016-12-08] MEDS ORDERED: LACTATED RINGERS 1,000 ML IV ONE (16:23)
[2016-12-08] MEDS ORDERED: LIDOCAINE 1% 20 ML VIAL (10MG/ML) FOR IV START INTRADERMA ONE (16:23)
--- NOTE | 2016-12-08 19:43 | P.GSHP ---
History of Present Illness H&P Date: 12/08/16 CHIEF COMPLAINT: Foreign body and dysphagia HISTORY OF PRESENT ILLNESS: The patient is a 41-year-old female who presents foreign body being stuck with dysphasia. Upper endoscopy was offered for further evaluation and management. PAST MEDICAL HISTORY: Please see list. PAST SURGICAL HISTORY: Please see list. MEDICATIONS: Please see list. ALLERGIES: Please see list. SOCIAL HISTORY: No illicit drug use FAMILY HISTORY: No reports of Crohn disease or ulcerative colitis. REVIEW OF ORGAN SYSTEMS: CONSTITUTIONAL: No reports of fevers or chills. GI: Denies any blood in stools or constipation. PHYSICAL EXAM: VITAL SIGNS: Stable GENERAL: Well-developed and pleasant in no acute distress. HEENT: No scleral icterus. Extraocular movements grossly intact. Moist buccal mucosa. NECK: Supple without lymphadenopathy. CHEST: Unlabored respirations. Equal bilateral excursions. CARDIOVASCULAR: Regular rate and rhythm. Distal 2+ pulses. ABDOMEN: Soft, nondistended. Epigastric abdominal pain MUSCULOSKELETAL: No clubbing, cyanosis, or edema. ASSESSMENT: 1. Foreign body with dysphagia PLAN: 1. Recommend proceeding with an upper endoscopy with removal of foreign body Past Medical History Past Medical History: Asthma, Thyroid Disorder Additional Past Medical History / Comment(s): HX OF FREQUENT SWELLING FEET AND ANKLES. hyperthyroid- no meds History of Any Multi-Drug Resistant Organisms: None Reported Past Surgical History: Bariatric Surgery, Section, Tubal Ligation, Uterine Ablation Additional Past Surgical History / Comment(s): lap band 2009-removed 09/2016, GASTRIC BYPASS Past Anesthesia/Blood Transfusion Reactions: Motion Sickness, Postoperative Nausea & Vomiting (PONV) Additional Past Anesthesia/Blood Transfusion Reaction / Comment(s): STATES long time to wake up Past Psychological History: No Psychological Hx Reported Additional Psychological History / Comment(s): . Smoking Status: Never smoker Past Alcohol Use History: Rare Additional Past Alcohol Use History / Comment(s): . Past Drug Use History: None Reported - Past Family History Father Family Medical History: Diabetes Mellitus Additional Family Medical History / Comment(s): morbidly obese, joint replacements bilateral knee, wheelchair bound due to weight/joint problems Mother Family Medical History: No Reported History Additional Family Medical History / Comment(s): morbidly obese, joint replacements bilateral knee Sister(s) Family Medical History: Diabetes Mellitus Additional Family Medical History / Comment(s): sister #1= no hx. sister #2= Frequent BM's (possible IBS) Medications and Allergies Home Medications Medication Instructions Recorded Confirmed Type Fluticasone Propionate [Flonase 1 spray EA NOSTRIL BID 07/27/16 12/08/16 History Allergy Relief] Montelukast [Singulair] 10 mg PO DAILY 07/27/16 12/08/16 History Levalbuterol Hfa Inhaler [Xopenex 1 - 2 puff INHALATION RT-Q6H PRN 09/18/16 History Hfa Inhaler] Magnesium Hydroxide [Milk of 400 mg PO DAILY 11/10/16 12/08/16 History Magnesia] Omeprazole 40 mg PO DAILY #90 capsule. 11/29/16 12/08/16 Rx Loratadine-Pseudoeph 5-120 mg 1 each PO Q12HR #20 tab 12/06/16 12/08/16 Rx [Claritin-D 12 HR] Allergies Allergy/AdvReac Type Severity Reaction Status Date / Time No Known Allergies Allergy Verified 12/08/16 15:55 Surgical - Exam Vital Signs Temp Pulse Resp BP Pulse Ox 97.2 F L 105 H 18 119/76 99 12/08/16 15:54 12/08/16 15:54 12/08/16 15:54 12/08/16 15:54 12/08/16 15:54
[2016-12-08] MEDS ORDERED: PROPOFOL 10 MG/ML 20 ML VIAL IV ONE (20:10)
--- NOTE | 2016-12-08 20:21 | P.PCN ---
Date of Procedure: 12/08/16 Description of Procedure: PREOPERATIVE DIAGNOSIS: Dysphagia. History of foreign body. Epigastric abdominal pain. POSTOPERATIVE DIAGNOSIS: Dysphagia. History of foreign body. Epigastric abdominal pain. Gastrojejunal stricture with chronic ulcer without perforation OPERATION: Esophagogastrojejunoscopy with balloon dilatation from 10 to 17 mm. SURGEON: Denisse Haddad MD ANESTHESIA: MAC. INDICATIONS: The patient is a 41-year-old female who presents with a history of food being stuck in her throat and dysphagia. Benefits and risks of the procedure were described. Informed consent was obtained. DESCRIPTION: The patient was brought into the endoscopy suite and laid in the left lateral decubitus position. After a timeout was confirmed, the procedure was initiated. An Olympus gastroscope was passed along the posterior oropharynx down to the distal esophagus where the squamocolumnar junction was unremarkable. The gastric pouch was entered. A gastrojejunal stricture of 10 mm was found as the pediatric gastroscope was 8.6 mm in size. A Cuurio balloon dilator was placed through the scope. Final insufflation up to 17 mm was performed with a total of 2 minutes. The scope was advanced up to 50 cm from the incisors into the Adam limb. The mucosa of the gastrojejunal anastomosis was intact. 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 No full-thickness injury was encountered. The GI tract was desufflated. The patient tolerated the procedure well. FINDINGS: Squamocolumnar junction unremarkable at 35 cm. Stricture of 10 mm encountered. Chronic gastrojejunal ulceration encountered. Balloon dilatation to 17 mm. RECOMMENDATIONS: Upper endoscopy as needed. Plan - Discharge Summary New Discharge Prescriptions: No Action Montelukast [Singulair] 10 mg PO DAILY Fluticasone Propionate [Flonase Allergy Relief] 1 spray EA NOSTRIL BID Levalbuterol Hfa Inhaler [Xopenex Hfa Inhaler] 1 - 2 puff INHALATION RT-Q6H PRN PRN Reason: Shortness Of Breath Magnesium Hydroxide [Milk of Magnesia] 400 mg PO DAILY Omeprazole 40 mg PO DAILY #90 capsule. Loratadine-Pseudoeph 5-120 mg [Claritin-D 12 HR] 1 each PO Q12HR #20 tab Discharge Medication List Fluticasone Propionate [Flonase Allergy Relief] 1 spray EA NOSTRIL BID 07/27/16 [History] Montelukast [Singulair] 10 mg PO DAILY 07/27/16 [History] Levalbuterol Hfa Inhaler [Xopenex Hfa Inhaler] 1 - 2 puff INHALATION RT-Q6H PRN 09/18/16 [History] Magnesium Hydroxide [Milk of Magnesia] 400 mg PO DAILY 11/10/16 [History] Omeprazole 40 mg PO DAILY #90 capsule. 11/29/16 [Rx] Loratadine-Pseudoeph 5-120 mg [Claritin-D 12 HR] 1 each PO Q12HR #20 tab [Rx]
[2016-12-08 20:44] VITALS: BP 118/85; PULSE 91
== END 2016-12-08 20:51 | disposition home or self-care (01) ==
LOC: ORWHC2ENDO 15:50
PROVIDERS: ATTEND Surgery Plastic and Reconstructive Surgery
DX: K31.89 Other diseases of stomach and duodenum (principal); K21.9 Gastro-esophageal reflux disease without esophagitis; Z98.84 Bariatric surgery status; J45.909 Unspecified asthma, uncomplicated; E05.90 Thyrotoxicosis, unspecified without thyrotoxic crisis or storm; Z79.51 Long term (current) use of inhaled steroids; Z79.899 Other long term (current) drug therapy
CPT/HCPCS: 81025; 43245; J2704; C1726

== ENCOUNTER → 2017-01-25 | Outpatient (CLI) | payer BC ==
[2017-01-25 09:26] VITALS: BP 126/70; PULSE 89; RESP 16; TEMP 98.4; BMI 44.1
[2017-01-25 11:40] LABS: HCT 42.3 % (34.0-46.0); HGB 13.9 gm/dL (11.4-16.0); Hypochromasia Slight; MCH 30.2 pg (25.0-35.0); MCHC 32.8 g/dL (31.0-37.0); MCV 91.9 fL (80.0-100.0); Mean Platelet Volume 7.5; Platelet Count 222 k/uL (150-450); RBC 4.61 m/uL (3.80-5.40); RDW 15.6 % (11.5-15.5); WBC 6.5 k/uL (3.8-10.6)
[2017-01-25 11:56] LABS: INR 1.1 (<1.2); Partial Thromboplastin Time 22.7 sec (22.0-30.0); Prothrombin Time 10.8 sec (9.0-12.0)
[2017-01-25 12:14] LABS: ALT 46 U/L (9-52); AST 24 U/L (14-36); Albumin 3.8 g/dL (3.5-5.0); Alkaline Phosphatase 53 U/L (38-126); Anion Gap 9 mmol/L; Blood Urea Nitrogen 14 mg/dL (7-17); Calcium 9.4 mg/dL (8.4-10.2); Carbon Dioxide 26 mmol/L (22-30); Chloride 107 mmol/L (98-107); Cholesterol 159 mg/dL (<200); Glucose 77 mg/dL (74-99); HDL Cholesterol 39 mg/dL (40-60); LDL Cholesterol,Calculated 96 mg/dL (0-99); Phosphorus 3.9 mg/dL (2.5-4.5); Potassium 4.7 mmol/L (3.5-5.1); Sodium 142 mmol/L (137-145); Total Bilirubin 0.7 mg/dL (0.2-1.3); Total Protein 6.5 g/dL (6.3-8.2); Triglycerides 121 mg/dL (<150)
[2017-01-25 17:00] LABS: Iron Saturation 15.67 (12.00-45.00)
[2017-01-25 17:02] LABS: Hemoglobin A1C 4.8 % (4.0-6.0)
[2017-01-25 17:10] LABS: Vitamin D 25 Hydroxy 31.5 ng/mL (30.0-100.0)
[2017-01-25 17:20] LABS: Parathyroid Hormone Intact 92.3 pg/mL (14.0-72.0)
[2017-01-25 17:22] LABS: Folate, Serum 17.1 ng/mL
[2017-01-26 12:50] LABS: Zinc, Serum 48 ug/dL (60-130)
[2017-01-29 06:44] LABS: Vitamin B1 67 ug/L (38-122)
[2017-01-29 08:39] LABS: Vitamin A 24 ug/dL (38-106)
[2017-01-30 16:45] LABS: Selenium 100 mcg/L (63-160)
--- NOTE | 2017-03-29 20:34 | P.PN ---
Subjective Progress Note Date: 01/25/17 DATE OF SERVICE: 01/25/2017. CHIEF COMPLAINT: Follow-up gastric bypass. HISTORY OF PRESENT ILLNESS: Maia Duron is a 41-year-old female who is status post removal of adjustable gastric band 09/25/2016 followed by robotic assisted Adam-en-Y gastric bypass 11/06/16. She is very happy with her weight loss. Her highest weight was 280 pounds, today she comes in weighing 233 pounds. She has lost 47 pounds. She denies any dysphagia. No reports of diarrhea. Her reflux disease is resolved. She is about to go on a trip. She is 3 months out. At her height of 5 feet 1 inches, she had weighed 280 pounds with body mass index of 53.0. Her ideal body weight is 131 pounds. Percent excess weight loss is 31%. She is 102 pounds overweight. PHYSICAL EXAM: VITAL SIGNS: 5 feet 1 inch, 233 pounds. Body mass index of 44.1 Vital Signs Temp 98.4 F 01/25/17 09:23 Pulse 89 01/25/17 09:23 Resp 16 01/25/17 09:23 BP 126/70 01/25/17 09:23 Pulse Ox GENERAL: Well developed and in no acute distress. Pleasant. HEENT: No sclera icterus. Extraocular movements grossly intact. Moist buccal mucosa. Head is atraumatic, normocephalic. Hears conversational speech. No nasal drainage. NECK: Supple without lymphadenopathy. No JV distention. CHEST: Non-labored respirations and equal bilateral excursions. CARDIOVASCULAR: Regular rate and rhythm. Palpable 2+ radial pulses. ABDOMEN: Soft, nontender. Nondistended. No incisional hernia. MUSCULOSKELETAL: No clubbing, cyanosis or edema. NEUROLOGIC: No focal or lateralizing signs. PSYCH: Appropriate affect. Alert and oriented to person, place and time. SKIN: Good skin turgor. Well perfused. ASSESSMENT: 1. Moderate obesity due to excess calories. 2. Body mass index of 53.0 to 44.1 3. History of obstructive sleep apnea, improved 4. Gastroesophageal reflux disease, resolved. 5. Osteoarthritis of the lower back, improved. 6. Osteoarthritis bilateral hips, improved. 7. Osteoarthritis of the bilateral knees, improved. 8. Osteoarthritis of bilateral ankles, improved. 9. Previous complication of adjustable gastric band. 10. Status post gastric bypass. 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 PLAN: 1. She has resolved her dysphagia. 2. Recommend bariatric metabolic panel. 3. Follow-up in March 2017. 4. Vitamin A supplementation. 5. Zinc supplementation. 6. Calcium supplementation. Laboratory Last Values WBC 6.5 k/uL (3.8-10.6) 01/25/17 11:15 RBC 4.61 m/uL (3.80-5.40) 01/25/17 11:15 Hgb 13.9 gm/dL (11.4-16.0) 01/25/17 11:15 Hct 42.3 % (34.0-46.0) 01/25/17 11:15 MCV 91.9 fL (80.0-100.0) 01/25/17 11:15 MCH 30.2 pg (25.0-35.0) 01/25/17 11:15 MCHC 32.8 g/dL (31.0-37.0) 01/25/17 11:15 RDW 15.6 % (11.5-15.5) H 01/25/17 11:15 Plt Count 222 k/uL (150-450) 01/25/17 11:15 Hypochromasia Slight 01/25/17 11:15 PT 10.8 sec (9.0-12.0) 01/25/17 11:15 INR 1.1 (<1.2) 01/25/17 11:15 APTT 22.7 sec (22.0-30.0) 01/25/17 11:15 Sodium 142 mmol/L (137-145) 01/25/17 11:15 Potassium 4.7 mmol/L (3.5-5.1) 01/25/17 11:15 Chloride 107 mmol/L (98-107) 01/25/17 11:15 Carbon Dioxide 26 mmol/L (22-30) 01/25/17 11:15 Anion Gap 9 mmol/L 01/25/17 11:15 BUN 14 mg/dL (7-17) 01/25/17 11:15 Creatinine 0.70 mg/dL (0.52-1.04) 01/25/17 11:15 Est GFR (MDRD) Af Amer >60 (>60 ml/min/1.73 sqM) 01/25/17 11:15 Est GFR (MDRD) Non-Af >60 (>60 ml/min/1.73 sqM) 01/25/17 11:15 Glucose 77 mg/dL (74-99) 01/25/17 11:[address] Glu mg/dL 91 01/25/17 11:15 Hemoglobin A1c 4.8 % (4.0-6.0) 01/25/17 11:15 Calcium 9.4 mg/dL (8.4-10.2) 01/25/17 11:15 Phosphorus 3.9 mg/dL (2.5-4.5) 01/25/17 11:15 Magnesium 2.0 mg/dL (1.6-2.3) 01/25/17 11:15 Iron 42 ug/dL (50-170) L 01/25/17 11:15 TIBC 268 ug/dL (228-460) 01/25/17 11:15 Iron Saturation 15.67 (12.00-45.00) 01/25/17 11:15 Ferritin 31.0 ng/mL (10.0-291.0) 01/25/17 11:15 Total Bilirubin 0.7 mg/dL (0.2-1.3) 01/25/17 11:15 AST 24 U/L (14-36) 01/25/17 11:15 ALT 46 U/L (9-52) 01/25/17 11:15 Alkaline Phosphatase 53 U/L (38-126) 01/25/17 11:15 Total Protein 6.5 g/dL (6.3-8.2) 01/25/17 11:15 Albumin 3.8 g/dL (3.5-5.0) 01/25/17 11:15 Prealbumin 15.0 mg/dL (18.0-42.0) L 01/25/17 11:15 Triglycerides 121 mg/dL (<150) 01/25/17 11:15 Cholesterol 159 mg/dL (<200) 01/25/17 11:15 LDL Cholesterol, Calc 96 mg/dL (0-99) 01/25/17 11:15 HDL Cholesterol 39 mg/dL (40-60) L 01/25/17 11:15 Vitamin A 24 ug/dL (38-106) L 01/25/17 11:15 Vitamin B1 67 ug/L (38-122) 01/25/17 11:15 Vitamin B12 688.0 pg/mL (200.0-944.0) 01/25/17 11:15 Vitamin D 25-Hydroxy 31.5 ng/mL (30.0-100.0) 01/25/17 11:15 Folate 17.1 ng/mL 01/25/17 11:15 TSH 2.790 mIU/L (0.465-4.680) 01/25/17 11:15 PTH Intact 92.3 pg/mL (14.0-72.0) H 01/25/17 11:15 Copper 1212 ug/L (810-1990) 01/25/17 11:15 Selenium 100 mcg/L (63-160) 01/25/17 11:15 Zinc 48 ug/dL (60-130) L 01/25/17 11:15 Objective - Vital Signs Vital signs: Vital Signs Temp 98.4 F 01/25/17 09:23 Pulse 89 01/25/17 09:23 Resp 16 01/25/17 09:23 BP 126/70 01/25/17 09:23 Pulse Ox Intake & Output 01/24/17 01/25/17 01/25/17 18:59 06:59 18:59 Weight 105.942 kg - Labs CBC & Chem 7: 01/25/17 11:15 01/25/17 11:15
== END | disposition home or self-care (01) ==
LOC: BARWHC3 09:09
PROVIDERS: ATTEND Surgery Plastic and Reconstructive Surgery
DX: Z09 Encounter for follow-up examination after completed treatment for conditions other than malignant neoplasm (principal); E66.01 Morbid (severe) obesity due to excess calories; M47.816 Spondylosis without myelopathy or radiculopathy, lumbar region; M16.0 Bilateral primary osteoarthritis of hip; M17.0 Bilateral primary osteoarthritis of knee; M19.071 Primary osteoarthritis, right ankle and foot; M19.072 Primary osteoarthritis, left ankle and foot; K56.699 Other intestinal obstruction unspecified as to partial versus complete obstruction; E21.1 Secondary hyperparathyroidism, not elsewhere classified; E89.1 Postprocedural hypoinsulinemia; D50.9 Iron deficiency anemia, unspecified; K90.9 Intestinal malabsorption, unspecified; E55.9 Vitamin D deficiency, unspecified; K76.9 Liver disease, unspecified; N19 Unspecified kidney failure; K50.90 Crohn's disease, unspecified, without complications; K90.89 Other intestinal malabsorption; Z68.41 Body mass index [BMI] 40.0-44.9, adult; Z98.84 Bariatric surgery status
CPT/HCPCS: 36415; 80053; 80061; 82306; 82525; 82607; 82728; 82746; 83036; 83540; 83550; 83735; 83970; 84100; 84134; 84255; 84425; 84443; 84590; 84630; 85027; 85610; 85730; 97803; 99211

== ENCOUNTER → 2017-04-26 | Outpatient (CLI) | payer BC ==
[2017-04-26 09:15] VITALS: BP 112/79; PULSE 106; TEMP 97.9; BMI 37.6
[2017-04-26 10:49] LABS: HCT 44.1 % (34.0-46.0); HGB 14.1 gm/dL (11.4-16.0); MCH 29.5 pg (25.0-35.0); MCHC 31.9 g/dL (31.0-37.0); MCV 92.5 fL (80.0-100.0); Mean Platelet Volume 7.6; Platelet Count 222 k/uL (150-450); RBC 4.77 m/uL (3.80-5.40); RDW 14.1 % (11.5-15.5); WBC 6.4 k/uL (3.8-10.6)
[2017-04-26 10:52] LABS: INR 1.1 (<1.2); Partial Thromboplastin Time 23.5 sec (22.0-30.0); Prothrombin Time 10.9 sec (9.0-12.0)
[2017-04-26 11:00] LABS: ALT 29 U/L (9-52); AST 20 U/L (14-36); Alkaline Phosphatase 58 U/L (38-126); Anion Gap 9 mmol/L; Blood Urea Nitrogen 15 mg/dL (7-17); Calcium 9.7 mg/dL (8.4-10.2); Carbon Dioxide 29 mmol/L (22-30); Chloride 104 mmol/L (98-107); Cholesterol 148 mg/dL (<200); Glucose 83 mg/dL (74-99); HDL Cholesterol 47 mg/dL (40-60); LDL Cholesterol,Calculated 82 mg/dL (0-99); Magnesium 2.1 mg/dL (1.6-2.3); Phosphorus 3.5 mg/dL (2.5-4.5); Potassium 4.4 mmol/L (3.5-5.1); Sodium 142 mmol/L (137-145); Total Protein 6.7 g/dL (6.3-8.2); Triglycerides 96 mg/dL (<150)
[2017-04-26 15:46] LABS: Vitamin D 25 Hydroxy 48.2 ng/mL (30.0-100.0)
[2017-04-26 15:51] LABS: Iron Saturation 17.77 (12.00-45.00)
[2017-04-26 16:25] LABS: Folate, Serum >24.0 ng/mL
[2017-04-26 16:29] LABS: Parathyroid Hormone Intact 36.1 pg/mL (14.0-72.0)
[2017-04-26 17:38] LABS: Hemoglobin A1C 5.1 % (4.0-6.0)
[2017-04-27 10:56] LABS: Zinc, Serum 105 ug/dL (60-130)
[2017-04-27 16:20] LABS: Vitamin A 24 ug/dL (38-106)
[2017-05-01 08:52] LABS: Vitamin B1 74 ug/L (38-122)
[2017-05-01 15:35] LABS: Selenium 155 mcg/L (63-160)
--- NOTE | 2017-05-26 20:29 | P.PN ---
Subjective Progress Note Date: 04/26/17 DATE OF SERVICE: 04/26/2017. CHIEF COMPLAINT: Follow-up gastric bypass. HISTORY OF PRESENT ILLNESS: Maia Duron is a 42-year-old female who is status post removal of adjustable gastric band 09/25/2016 followed by robotic assisted Adam-en-Y gastric bypass 11/06/16. Her highest weight was 280 pounds, today she comes in weighing 199 pounds. She has lost 81 pounds. She is 6 months out. At her height of 5 feet 1 inches, she had weighed 280 pounds with body mass index of 53.0. Her ideal body weight is 131 pounds. Percent excess weight loss is 55%. She is 68 pounds overweight. Since her last visit 3 months ago, she has lost another 34 pounds. She comes in complaints with chronic panniculitis despite using nystatin powder. She reports also troubles with her breasts and is seeking a breast reduction. She reports shoulder grooving including chronic neck and back pain. Despite weight loss, she still reports a moderate breast size. PAST MEDICAL HISTORY: 1. Asthma. 2. Seasonal allergies. 3. Hypothyroidism. 4. Obstructive sleep apnea. 5. Osteoarthritis of bilateral knees. 6. Osteoarthritis of bilateral. 7. Bilateral ankle pain secondary to osteoarthritis. 8. Postoperative nausea and vomiting. PAST SURGICAL HISTORY: 1. Adjustable gastric band placement. 2. Removal of adjustable gastric band. 3. Gastric bypass. 4. section 5. Tubal Ligation. 6. Uterine Ablation. MEDICATIONS: 1. Omeprazole. 2. Singulair 3. Xopenex. 4. Flonase ALLERGIES: Denies. SOCIAL HISTORY: History of alcohol use. Denies any tobacco use. FAMILY HISTORY: Pertinent for diabetes. No family history of lupus. Personal family history of irritable bowel syndrome including Crohn's disease. Also has history of morbid obesity. REVIEW OF SYSTEMS: CONSTITUTIONAL: At her height of 5 feet 1 inches, she had weighed 280 pounds with body mass index of 53.0. Her ideal body weight is 131 pounds. Percent excess weight loss is 55%. She is 68 pounds overweight. Since her last visit 3 months ago, she has lost another 34 pounds. HEENT: No reports of dysphagia or troubles with hearing. Has history of dysphagia with adjustable gastric band. ENDOCRINE: History of thyroid disorders. Denies any diabetes. RESPIRATORY: Has dyspnea on exertion with asthma. Also obstructive sleep apnea. CARDIOVASCULAR: No reports of chest pain or heart attack. GASTROINTESTINAL: Gastroesophageal reflux disease. No reports of blood in stools. No diarrhea, constipation. MUSCULOSKELETAL: Has diffuse osteoarthritis, including problems with bilateral hips, bilateral knees including bilateral ankles. NEUROLOGICAL: No recent stroke or seizure disorder. PSYCHIATRY: Has depression. No reports of suicidal ideation. HEMATOLOGIC: Denies easy bruising or bleeding. SKIN: Chronic panniculitis. No reports of skin cancer. PHYSICAL EXAM: VITAL SIGNS: 5 feet 1 inch, 199 pounds. Body mass index of 37.6 Vital Signs Temp 97.9 F 04/26/17 09:13 Pulse 106 H 04/26/17 09:13 Resp BP 112/79 04/26/17 09:13 Pulse Ox GENERAL: Well developed and in no acute distress. Pleasant. HEENT: No sclera icterus. Extraocular movements grossly intact. Moist buccal mucosa. Head is atraumatic, normocephalic. Hears conversational speech. No nasal drainage. NECK: Supple without lymphadenopathy. No JV distention. CHEST: Non-labored respirations and equal bilateral excursions. CARDIOVASCULAR: Tachycardic. Palpable 2+ radial pulses. ABDOMEN: Soft, nontender. Nondistended. No incisional hernia. Moderate pannus of 8-10 pounds. Pannus over pubis 6 cm. MUSCULOSKELETAL: No clubbing, cyanosis or edema. NEUROLOGIC: No focal or lateralizing signs. PSYCH: Appropriate affect. Alert and oriented to person, place and time. SKIN: Good skin turgor. Well perfused. LABS: Pending ASSESSMENT: 1. Moderate obesity due to excess calories. 2. Body mass index of 53.0 to 37.6. 3. History of obstructive sleep apnea, resolved. 4. Gastroesophageal reflux disease, resolved. 5. Osteoarthritis of the lower back, improved. 6. Osteoarthritis bilateral hips, improved. 7. Osteoarthritis of the bilateral knees, improved. 8. Osteoarthritis of bilateral ankles, improved. 9. Status post gastric bypass. 10. Chronic panniculitis. 11. Macromastia. 12. Iron deficiency anemia. 13. Vitamin A deficiency. 14. Secondary hyperparathyroidism 15. Zinc deficiency. PLAN: 1. Recommend new bariatric metabolic panel. 2. Recommend protein intake over 75 g. 3. Nystatin powder for panniculitis. 4. Recommend consultation with plastic surgeon for bilateral breast reduction. Laboratory Last Values WBC 6.4 k/uL (3.8-10.6) 04/26/17 10:09 RBC 4.77 m/uL (3.80-5.40) 04/26/17 10:09 Hgb 14.1 gm/dL (11.4-16.0) 04/26/17 10:09 Hct 44.1 % (34.0-46.0) 04/26/17 10:09 MCV 92.5 fL (80.0-100.0) 04/26/17 10:09 MCH 29.5 pg (25.0-35.0) 04/26/17 10:09 MCHC 31.9 g/dL (31.0-37.0) 04/26/17 10:09 RDW 14.1 % (11.5-15.5) 04/26/17 10:09 Plt Count 222 k/uL (150-450) 04/26/17 10:09 PT 10.9 sec (9.0-12.0) 04/26/17 10:09 INR 1.1 (<1.2) 04/26/17 10:09 APTT 23.5 sec (22.0-30.0) 04/26/17 10:09 Sodium 142 mmol/L (137-145) 04/26/17 10:09 Potassium 4.4 mmol/L (3.5-5.1) 04/26/17 10:09 Chloride 104 mmol/L (98-107) 04/26/17 10:09 Carbon Dioxide 29 mmol/L (22-30) 04/26/17 10:09 Anion Gap 9 mmol/L 04/26/17 10:09 BUN 15 mg/dL (7-17) 04/26/17 10:09 Creatinine 0.80 mg/dL (0.52-1.04) 04/26/17 10:09 Est GFR (MDRD) Af Amer >60 (>60 ml/min/1.73 sqM) 04/26/17 10:09 Est GFR (MDRD) Non-Af >60 (>60 ml/min/1.73 sqM) 04/26/17 10:09 Glucose 83 mg/dL (74-99) 04/26/17 10:[address] Glu mg/dL 100 04/26/17 10:09 Hemoglobin A1c 5.1 % (4.0-6.0) 04/26/17 10:09 Calcium 9.7 mg/dL (8.4-10.2) 04/26/17 10:09 Phosphorus 3.5 mg/dL (2.5-4.5) 04/26/17 10:09 Magnesium 2.1 mg/dL (1.6-2.3) 04/26/17 10:09 Iron 51 ug/dL (50-170) 04/26/17 10:09 TIBC 287 ug/dL (228-460) 04/26/17 10:09 Iron Saturation 17.77 (12.00-45.00) 04/26/17 10:09 Ferritin 44.0 ng/mL (10.0-291.0) 04/26/17 10:09 Total Bilirubin 1.0 mg/dL (0.2-1.3) 04/26/17 10:09 AST 20 U/L (14-36) 04/26/17 10:09 ALT 29 U/L (9-52) 04/26/17 10:09 Alkaline Phosphatase 58 U/L (38-126) 04/26/17 10:09 Total Protein 6.7 g/dL (6.3-8.2) 04/26/17 10:09 Albumin 4.0 g/dL (3.5-5.0) 04/26/17 10:09 Prealbumin 14.0 mg/dL (18.0-42.0) L 04/26/17 10:09 Triglycerides 96 mg/dL (<150) 04/26/17 10:09 Cholesterol 148 mg/dL (<200) 04/26/17 10:09 LDL Cholesterol, Calc 82 mg/dL (0-99) 04/26/17 10:09 HDL Cholesterol 47 mg/dL (40-60) 04/26/17 10:09 Vitamin A 24 ug/dL (38-106) L 04/26/17 10:09 Vitamin B1 74 ug/L (38-122) 04/26/17 10:09 Vitamin B12 1297.0 pg/mL (200.0-944.0) H 04/26/17 10:09 Vitamin D 25-Hydroxy 48.2 ng/mL (30.0-100.0) 04/26/17 10:09 Folate >24.0 ng/mL 04/26/17 10:09 TSH 1.930 mIU/L (0.465-4.680) 04/26/17 10:09 PTH Intact 36.1 pg/mL (14.0-72.0) 04/26/17 10:09 Copper 1270 ug/L (810-1990) 04/26/17 10:09 Selenium 155 mcg/L (63-160) 04/26/17 10:09 Zinc 105 ug/dL (60-130) 04/26/17 10:09 Objective - Labs CBC & Chem 7: 04/26/17 10:09 04/26/17 10:09
== END | disposition home or self-care (01) ==
LOC: BARWHC3 08:43
PROVIDERS: ATTEND Surgery Plastic and Reconstructive Surgery
DX: Z48.815 Encounter for surgical aftercare following surgery on the digestive system (principal); E66.01 Morbid (severe) obesity due to excess calories; M47.816 Spondylosis without myelopathy or radiculopathy, lumbar region; M16.0 Bilateral primary osteoarthritis of hip; M17.0 Bilateral primary osteoarthritis of knee; M19.071 Primary osteoarthritis, right ankle and foot; M19.072 Primary osteoarthritis, left ankle and foot; M79.3 Panniculitis, unspecified; N62 Hypertrophy of breast; D50.9 Iron deficiency anemia, unspecified; E50.9 Vitamin A deficiency, unspecified; E60 Dietary zinc deficiency; J45.909 Unspecified asthma, uncomplicated; Z68.37 Body mass index [BMI] 37.0-37.9, adult; Z79.899 Other long term (current) drug therapy; Z98.84 Bariatric surgery status; E89.1 Postprocedural hypoinsulinemia; D50.8 Other iron deficiency anemias; K90.89 Other intestinal malabsorption; E55.9 Vitamin D deficiency, unspecified; N19 Unspecified kidney failure; K50.90 Crohn's disease, unspecified, without complications; K76.9 Liver disease, unspecified
CPT/HCPCS: 36415; 80053; 80061; 82306; 82525; 82607; 82728; 82746; 83036; 83540; 83550; 83735; 83970; 84100; 84134; 84255; 84425; 84443; 84590; 84630; 85027; 85610; 85730; 97803; 99211

== ENCOUNTER → 2017-08-01 | Outpatient (CLI) | payer BC ==
[2017-08-01 16:10] LABS: HCT 46.6 % (34.0-46.0); HGB 15.5 gm/dL (11.4-16.0); MCH 30.5 pg (25.0-35.0); MCHC 33.2 g/dL (31.0-37.0); Mean Platelet Volume 7.2; Platelet Count 212 k/uL (150-450); RBC 5.07 m/uL (3.80-5.40); RDW 13.7 % (11.5-15.5); WBC 8.8 k/uL (3.8-10.6)
[2017-08-01 16:21] LABS: ALT 41 U/L (9-52); AST 20 U/L (14-36); Albumin 3.1 g/dL (3.5-5.0); Alkaline Phosphatase 42 U/L (38-126); Anion Gap 11 mmol/L; Blood Urea Nitrogen 19 mg/dL (7-17); Calcium 8.5 mg/dL (8.4-10.2); Carbon Dioxide 26 mmol/L (22-30); Chloride 103 mmol/L (98-107); Cholesterol 149 mg/dL (<200); Glucose 82 mg/dL (74-99); HDL Cholesterol 43 mg/dL (40-60); LDL Cholesterol,Calculated 87 mg/dL (0-99); Phosphorus 3.5 mg/dL (2.5-4.5); Potassium 4.1 mmol/L (3.5-5.1); Sodium 140 mmol/L (137-145); Total Bilirubin 0.7 mg/dL (0.2-1.3); Total Protein 5.1 g/dL (6.3-8.2); Triglycerides 93 mg/dL (<150)
[2017-08-01 16:25] LABS: INR 1.1 (<1.2); Prothrombin Time 10.8 sec (9.0-12.0)
[2017-08-01 16:26] LABS: Partial Thromboplastin Time 21.9 sec (22.0-30.0)
--- NOTE | 2017-08-01 16:59 | P.PN ---
Subjective Progress Note Date: 08/01/17 HPI: She is feeling well and is very active. She has lost over 100+ pounds. She is maintaining protein intake over 60 grams daily. No food being stuck. For chronic constipation, she is taking stool softeners daily. She is drinking close to 90 oz. Her highest weight was 280-pounds. Her goal it to get to 140- pounds. ABDOMEN: Soft, non-tender. PLAN: 1. Alternatives for fiber supplement was descrribed. 2. Recommend increase vegetables for diet. 3. She started to use hair brush with much less hair loss. 4. She feels great. 5. Her labs have been completed. Objective - Labs CBC & Chem 7: 08/01/17 15:49 Labs: Abnormal Lab Results - Last 24 Hours (Table) 08/01/17 08/01/17 Range/Units 15:49 15:49 Hct 46.6 H (34.0-46.0) % APTT 21.9 L (22.0-30.0) sec
[2017-08-01 17:24] VITALS: BP 75/53; PULSE 108; RESP 14; TEMP 97.9; BMI 31.9
[2017-08-02 01:18] LABS: Vitamin D 25 Hydroxy 89.1 ng/mL (30.0-100.0)
[2017-08-02 01:25] LABS: Folate, Serum 19.5 ng/mL; Iron Saturation 13.27 (12.00-45.00)
[2017-08-02 02:02] LABS: Hemoglobin A1C 4.9 % (4.0-6.0)
[2017-08-02 02:05] LABS: Parathyroid Hormone Intact 50.3 pg/mL (14.0-72.0)
[2017-08-02 12:50] LABS: Vitamin A 31 ug/dL (38-106)
[2017-08-02 14:19] LABS: Zinc, Serum 88 ug/dL (60-130)
[2017-08-02 22:40] LABS: Vitamin B1 79 ug/L (38-122)
== END | disposition home or self-care (01) ==
LOC: BARWHC3 15:18
PROVIDERS: ATTEND Surgery Plastic and Reconstructive Surgery
DX: E66.01 Morbid (severe) obesity due to excess calories (principal); K59.09 Other constipation; Z71.3 Dietary counseling and surveillance
CPT/HCPCS: 80053; 80061; 82306; 82525; 82607; 82728; 82746; 83036; 83540; 83550; 83735; 83970; 84100; 84134; 84255; 84425; 84443; 84590; 84630; 85027; 85610; 85730; 97803; 99211

== ENCOUNTER → 2017-08-01 | Outpatient (CLI) | payer BC ==
--- NOTE | 2017-08-02 11:35 | MM ---
Reason for exam: screening (asymptomatic). Last mammogram was performed 1 year ago. Physical Findings: A clinical breast exam by your physician is recommended on an annual basis and results should be correlated with mammographic findings. MG Screening Mammo w CAD Bilateral CC and MLO view(s) were taken. Prior study comparison: July 25, 2016, bilateral MG screening mammo w CAD. March 24, 2014, bilateral MG screening mammo w CAD. There are scattered fibroglandular densities. No suspicious abnormality. No significant changes when compared with prior studies. ASSESSMENT: Negative, BI-RAD 1 RECOMMENDATION: Routine screening mammogram of both breasts in 1 year.
== END | disposition home or self-care (01) ==
LOC: RADMAMWWP 15:00
PROVIDERS: ATTEND Obstetrics & Gynecology
DX: Z12.31 Encounter for screening mammogram for malignant neoplasm of breast (principal); E66.01 Morbid (severe) obesity due to excess calories; E21.1 Secondary hyperparathyroidism, not elsewhere classified; E89.1 Postprocedural hypoinsulinemia; D50.9 Iron deficiency anemia, unspecified; E44.0 Moderate protein-calorie malnutrition; E55.9 Vitamin D deficiency, unspecified; K74.1 Hepatic sclerosis; N19 Unspecified kidney failure; K50.90 Crohn's disease, unspecified, without complications
CPT/HCPCS: 77067

== ENCOUNTER → 2017-10-08 | Outpatient (CLI) | payer BC | END | disposition home or self-care (01) | LOC: LABWHC1 12:16 | PROVIDERS: ATTEND Pathology Anatomic Pathology & Clinical Pathology | DX: Z01.82 Encounter for allergy testing (principal) | CPT/HCPCS: 36415 ==

== ENCOUNTER → 2017-10-31 | Outpatient (CLI) | payer BC ==
[2017-10-31 13:39] VITALS: BP 115/82; PULSE 83; BMI 27.9
--- NOTE | 2017-10-31 14:28 | P.PN ---
Subjective Progress Note Date: 10/31/17 HPI: No abdominal pain. Looked into plastic surgeon for body contouring. Weight loss over 130+ pounds. ABDOMEN: Pannus of 5 to 10 pounds. Has panniculitis. PLAN: 1. Recommend Nystatin powder. 2. Finish up labs. 3. Objective - Vital Signs Vital signs: Vital Signs Temp Pulse 83 10/31/17 13:36 Resp BP 115/82 10/31/17 13:36 Pulse Ox Intake & Output 10/30/17 10/31/17 10/31/17 18:59 06:59 18:59 Weight 67.132 kg
[2017-10-31 15:18] LABS: HCT 41.7 % (34.0-46.0); HGB 13.7 gm/dL (11.4-16.0); MCH 30.6 pg (25.0-35.0); MCHC 32.8 g/dL (31.0-37.0); MCV 93.5 fL (80.0-100.0); Mean Platelet Volume 7.2; Platelet Count 178 k/uL (150-450); RBC 4.46 m/uL (3.80-5.40); RDW 13.6 % (11.5-15.5); WBC 6.5 k/uL (3.8-10.6)
[2017-10-31 15:28] LABS: ALT 37 U/L (9-52); AST 23 U/L (14-36); Albumin 3.4 g/dL (3.5-5.0); Alkaline Phosphatase 40 U/L (38-126); Anion Gap 5 mmol/L; Blood Urea Nitrogen 8 mg/dL (7-17); Carbon Dioxide 28 mmol/L (22-30); Chloride 107 mmol/L (98-107); Cholesterol 173 mg/dL (<200); Glucose 78 mg/dL (74-99); HDL Cholesterol 56 mg/dL (40-60); LDL Cholesterol,Calculated 96 mg/dL (0-99); Magnesium 2.2 mg/dL (1.6-2.3); Phosphorus 4.1 mg/dL (2.5-4.5); Potassium 4.1 mmol/L (3.5-5.1); Sodium 140 mmol/L (137-145); Total Bilirubin 0.7 mg/dL (0.2-1.3); Total Protein 5.6 g/dL (6.3-8.2); Triglycerides 105 mg/dL (<150)
[2017-10-31 15:29] LABS: INR 1.1 (<1.2); Partial Thromboplastin Time 22.5 sec (22.0-30.0); Prothrombin Time 10.4 sec (9.0-12.0)
[2017-10-31 19:03] LABS: Parathyroid Hormone Intact 57.4 pg/mL (14.0-72.0)
[2017-10-31 20:27] LABS: Iron Saturation 24.68 (12.00-45.00)
[2017-10-31 20:37] LABS: Vitamin D 25 Hydroxy 81.1 ng/mL (30.0-100.0)
[2017-10-31 21:02] LABS: Folate, Serum 19.7 ng/mL
[2017-10-31 22:17] LABS: Hemoglobin A1C 5.1 % (4.0-6.0)
[2017-11-01 11:46] LABS: Zinc, Serum 99 ug/dL (60-130)
[2017-11-01 12:51] LABS: Vitamin B1 74 ug/L (38-122)
[2017-11-02 18:30] LABS: Selenium 109 mcg/L (63-160)
== END | disposition home or self-care (01) ==
LOC: BARWHC3 12:47
PROVIDERS: ATTEND Surgery Plastic and Reconstructive Surgery
DX: M79.3 Panniculitis, unspecified (principal); E66.01 Morbid (severe) obesity due to excess calories; E21.1 Secondary hyperparathyroidism, not elsewhere classified; D50.9 Iron deficiency anemia, unspecified; K90.9 Intestinal malabsorption, unspecified; E55.9 Vitamin D deficiency, unspecified; K74.1 Hepatic sclerosis; N19 Unspecified kidney failure; K50.90 Crohn's disease, unspecified, without complications; Z68.28 Body mass index [BMI] 28.0-28.9, adult
CPT/HCPCS: 36415; 80053; 80061; 82306; 82525; 82607; 82728; 82746; 83036; 83540; 83550; 83735; 83970; 84100; 84134; 84255; 84425; 84443; 84590; 84630; 85027; 85610; 85730; 99211

== ENCOUNTER → 2018-02-11 | Outpatient (CLI) | payer BC ==
[2018-02-11 10:30] LABS: HCT 39.2 % (34.0-46.0); HGB 12.8 gm/dL (11.4-16.0); MCH 31.7 pg (25.0-35.0); MCHC 32.5 g/dL (31.0-37.0); MCV 97.5 fL (80.0-100.0); Mean Platelet Volume 6.8; Platelet Count 221 k/uL (150-450); RBC 4.02 m/uL (3.80-5.40); RDW 13.3 % (11.5-15.5); WBC 4.6 k/uL (3.8-10.6)
== END ==
LOC: LABWHC1 09:08
PROVIDERS: ATTEND Specialist
DX: Z01.812 Encounter for preprocedural laboratory examination (principal)
CPT/HCPCS: 36415; 82040; 84134; 85027

== ENCOUNTER → 2018-08-19 | Outpatient (CLI) | payer BC ==
[2018-08-19 11:19] LABS: HCT 39.6 % (34.0-46.0); HGB 12.5 gm/dL (11.4-16.0); MCH 30.6 pg (25.0-35.0); MCHC 31.5 g/dL (31.0-37.0); MCV 97.1 fL (80.0-100.0); Mean Platelet Volume 6.8; Platelet Count 252 k/uL (150-450); RBC 4.07 m/uL (3.80-5.40); RDW 13.6 % (11.5-15.5); WBC 5.2 k/uL (3.8-10.6)
[2018-08-19 11:45] LABS: Partial Thromboplastin Time 23.3 sec (22.0-30.0); Prothrombin Time 10.3 sec (9.0-12.0)
[2018-08-19 16:24] LABS: Iron Saturation 23.29 (12.00-45.00)
[2018-08-19 16:32] LABS: Vitamin D 25 Hydroxy 50.7 ng/mL (30.0-100.0)
[2018-08-19 16:33] LABS: Folate, Serum 22.6 ng/mL
[2018-08-19 16:36] LABS: Albumin 3.8 g/dL (3.80-4.90); Albumin/Globulin Ratio 2.11 (1.60-3.17); Anion Gap 5.4 mmol/L (4.00-12.00); Calcium 9.1 mg/dL (8.7-10.3); Carbon Dioxide 25.6 mmol/L (21.6-31.8); Globulin 1.8 g/dL (1.6-3.3); LDL Cholesterol,Calculated 73.2 mg/dL (0.0-131.0); Phosphorus 3.4 mg/dL (2.4-5.1); Potassium 4.2 mmol/L (3.5-5.5); Total Protein 5.6 g/dL (6.2-8.2); VLDL Calculation 10.8 mg/dL (5.00-40.00)
[2018-08-19 16:39] LABS: Parathyroid Hormone Intact 38.8 pg/mL (14.0-72.0)
[2018-08-19 17:30] LABS: Hemoglobin A1C 5.2 % (4.0-6.0)
[2018-08-20 13:45] LABS: Zinc, Serum 36 ug/dL (60-130)
[2018-08-20 14:09] LABS: Vit B1(Thiamine) 62 ug/L (38-122)
== END | disposition home or self-care (01) ==
LOC: LABWHC1 10:33
PROVIDERS: ATTEND Surgery Plastic and Reconstructive Surgery
DX: E66.01 Morbid (severe) obesity due to excess calories (principal); E21.1 Secondary hyperparathyroidism, not elsewhere classified; E89.1 Postprocedural hypoinsulinemia; D50.9 Iron deficiency anemia, unspecified; K90.9 Intestinal malabsorption, unspecified; E55.9 Vitamin D deficiency, unspecified; K76.9 Liver disease, unspecified; N19 Unspecified kidney failure; K50.90 Crohn's disease, unspecified, without complications
CPT/HCPCS: 36415; 80053; 80061; 82306; 82525; 82607; 82728; 82746; 83036; 83540; 83550; 83735; 83970; 84100; 84134; 84255; 84425; 84443; 84590; 84630; 85027; 85610; 85730

== ENCOUNTER → 2018-09-07 | Outpatient (CLI) | payer BC ==
[2018-09-07 09:55] LABS: Basophils % (A) 0 %; Eosinophils # (A) 0.2 k/uL (0-0.7); Eosinophils % (A) 4 %; HCT 41.4 % (34.0-46.0); HGB 13.3 gm/dL (11.4-16.0); Lymphocytes # (A) 1.5 k/uL (1.0-4.8); Lymphocytes % (A) 31 %; MCH 31.1 pg (25.0-35.0); MCHC 32.2 g/dL (31.0-37.0); MCV 96.6 fL (80.0-100.0); Mean Platelet Volume 7.4; Monocytes # (A) 0.3 k/uL (0-1.0); Monocytes % (A) 5 %; Neutrophils # (A) 2.9 k/uL (1.3-7.7); Neutrophils % (A) 58 %; Platelet Count 243 k/uL (150-450); RBC 4.29 m/uL (3.80-5.40)
== END | disposition home or self-care (01) ==
LOC: LABWHC1 09:23
PROVIDERS: ATTEND Specialist
DX: Z01.818 Encounter for other preprocedural examination (principal)
CPT/HCPCS: 36415; 85025; 86850; 86900; 86901

== ENCOUNTER → 2018-11-20 | Outpatient (CLI) | payer BC ==
[2018-11-20 13:31] VITALS: BP 104/56; PULSE 69; TEMP 98.5; BMI 23.8
--- NOTE | 2018-11-20 13:55 | P.PN ---
Subjective Progress Note Date: 11/20/18 HPI: She had body contouring surgery and lost 8 pounds. She has lost 150 pounds. Her BMI is under 24. She saw Dr. Kassandra Rodrigues for body contouring. ABDOMEN: Incisions are well healed ASSESSMENT: 1 . Morbid obesity PLAN: 1. She is 2 years out 2. She will start taking her MVI daily. Objective - Vital Signs Vital signs: Vital Signs Temp 98.5 F 11/20/18 13:25 Pulse 69 11/20/18 13:25 Resp BP 104/56 11/20/18 13:25 Pulse Ox Intake & Output 11/19/18 11/20/18 11/20/18 18:59 06:59 18:59 Weight 57.153 kg
== END | disposition home or self-care (01) ==
LOC: BARWHC3 12:55
PROVIDERS: ATTEND Surgery Plastic and Reconstructive Surgery
DX: E66.01 Morbid (severe) obesity due to excess calories (principal); E60 Dietary zinc deficiency; Z68.23 Body mass index [BMI] 23.0-23.9, adult
CPT/HCPCS: 99211

== ENCOUNTER 2019-03-18 06:05 | Emergency (ER) | payer BC ==
[2019-03-18 06:17] VITALS: TEMP 97.9
[2019-03-18] MEDS ORDERED: KETOROLAC 30 MG/ML 1 ML VIAL IVP STA (06:44)
[2019-03-18] MEDS ORDERED: SODIUM CHLORIDE 0.9% 1,000 ML IV STA (06:44)
--- NOTE | 2019-03-18 07:10 | ED ---
General Adult HPI - General Chief complaint: Abdominal Pain Stated complaint: Abd Pain Time Seen by Provider: 03/18/19 06:26 Source: patient, RN notes reviewed Mode of arrival: ambulatory Limitations: no limitations - History of Present Illness Initial comments: 43 year old female with a past medical history of asthma presents to the emergency department for a chief complaint of abdominal pain. This has been ongoing for the past 2 hours. States she woke up with a severe lower abdominal pain. Patient states it radiates throughout her entire abdomen. She denies chest pain or shortness of breath. She denies nausea vomiting or diarrhea. She denies fevers or chills. Patient does have a history of gastric bypass surgery [address] Haddad. Patient has no other complaints at this time including shortness of breath, chest pain, abdominal pain, nausea or vomiting, headache, or visual changes. - Related Data Home Medications Medication Instructions Recorded Confirmed Levalbuterol Hfa Inhaler [Xopenex 1 - 2 puff INHALATION RT-Q6H PRN 09/18/16 11/20/18 Hfa Inhaler] Cholecalciferol [Vitamin D3] 10,000 mg PO DAILY 04/26/17 11/20/18 Iron 18 mg PO DAILY 04/26/17 11/20/18 Zinc 60 mg PO DAILY 04/26/17 11/20/18 Allergies Allergy/AdvReac Type Severity Reaction Status Date / Time No Known Allergies Allergy Verified 03/18/19 06:17 Review of Systems ROS Statement: Those systems with pertinent positive or pertinent negative responses have been documented in the HPI. ROS Other: All systems not noted in ROS Statement are negative. Past Medical History Past Medical History: Asthma, Thyroid Disorder Additional Past Medical History / Comment(s): HX OF FREQUENT SWELLING FEET AND ANKLES. hyperthyroid- no meds, EGD with dilitation Nov 2016, History of Any Multi-Drug Resistant Organisms: None Reported Past Surgical History: Bariatric Surgery, Section, Tubal Ligation, Uterine Ablation Additional Past Surgical History / Comment(s): lap band 2009-removed 09/2016, GASTRIC BYPASS, bilateral breast lift/reduction/implants (February 2018) pa nniculectomy/abdominoplasty August 2018 Past Anesthesia/Blood Transfusion Reactions: Motion Sickness, Postoperative Nausea & Vomiting (PONV) Additional Past Anesthesia/Blood Transfusion Reaction / Comment(s): STATES long time to wake up Past Psychological History: No Psychological Hx Reported Smoking Status: Never smoker Past Alcohol Use History: Rare Past Drug Use History: None Reported - Past Family History Father Family Medical History: Diabetes Mellitus Additional Family Medical History / Comment(s): morbidly obese, joint replacements bilateral knee, wheelchair bound due to weight/joint problems Mother Family Medical History: No Reported History Additional Family Medical History / Comment(s): morbidly obese, joint replacements bilateral knee Sister(s) Family Medical History: Diabetes Mellitus Additional Family Medical History / Comment(s): sister #1= no hx. sister #2= Frequent BM's (possible IBS) General Exam Limitations: no limitations General appearance: alert, in no apparent distress Head exam: Present: atraumatic, normocephalic, normal inspection Eye exam: Present: normal appearance, PERRL, EOMI. Absent: scleral icterus, conjunctival injection, periorbital swelling ENT exam: Present: normal exam, mucous membranes moist Neck exam: Present: normal inspection, full ROM. Absent: tenderness, meningismus Respiratory exam: Present: normal lung sounds bilaterally. Absent: respiratory distress, wheezes, rales, rhonchi, stridor Cardiovascular Exam: Present: regular rate, normal rhythm, normal heart sounds. Absent: systolic murmur, diastolic murmur, rubs, gallop, clicks GI/Abdominal exam: Present: soft, tenderness (General symptoms whatsoever this is worse in the left lower quadrant. Mild voluntary guarding present.), normal bowel sounds. Absent: distended, guarding, rebound, rigid Neurological exam: Present: alert Course Vital Signs 03/18/19 03/18/19 06:14 07:09 Temperature 97.9 F Pulse Rate 77 64 Respiratory 20 18 Rate Blood Pressure 118/77 106/63 O2 Sat by Pulse 99 100 Oximetry Medical Decision Making - Medical Decision Making CBC CMP unremarkable. Mild degree of dehydration, patient given fluids. CT abdomen and pelvis shows no bowel obstruction. No significant acute finding to account for patient's clinical symptoms. Patient reevaluated pain is completely resolved. Repeat abdominal exam was performed which revealed a nontender abdomen. Patient will be discharged to follow-up with primary care. She will return here if she has any worsening symptoms. - Lab Data Result diagrams: 03/18/19 06:53 03/18/19 06:53 Lab Results 03/18/19 03/18/19 03/18/19 Range/Units 06:53 06:53 06:53 WBC 4.9 (3.8-10.6) k/uL RBC 4.02 (3.80-5.40) m/uL Hgb 12.2 (11.4-16.0) gm/dL Hct 37.6 (34.0-46.0) % MCV 93.6 (80.0-100.0) fL MCH 30.2 (25.0-35.0) pg MCHC 32.3 (31.0-37.0) g/dL RDW 13.4 (11.5-15.5) % Plt Count 249 (150-450) k/uL Neutrophils % 63 % Lymphocytes % 27 % Monocytes % 5 % Eosinophils % 2 % Basophils % 0 % Neutrophils # 3.1 (1.3-7.7) k/uL Lymphocytes # 1.3 (1.0-4.8) k/uL Monocytes # 0.3 (0-1.0) k/uL Eosinophils # 0.1 (0-0.7) k/uL Basophils # 0.0 (0-0.2) k/uL Sodium 141 (137-145) mmol/L Potassium 4.3 (3.5-5.1) mmol/L Chloride 108 H (98-107) mmol/L Carbon Dioxide 28 (22-30) mmol/L Anion Gap 5 mmol/L BUN 20 H (7-17) mg/dL Creatinine 0.58 (0.52-1.04) mg/dL Est GFR (CKD-EPI)AfAm >90 (>60 ml/min/1.73 sqM) Est GFR (CKD-EPI)NonAf >90 (>60 ml/min/1.73 sqM) Glucose 79 (74-99) mg/dL Calcium 8.9 (8.4-10.2) mg/dL Total Bilirubin 1.2 (0.2-1.3) mg/dL AST 38 H (14-36) U/L ALT 33 (4-34) U/L Alkaline Phosphatase 52 (38-126) U/L Total Protein 6.0 L (6.3-8.2) g/dL Albumin 3.5 (3.5-5.0) g/dL Amylase 66 (30-110) U/L Lipase 166 (23-300) U/L Urine Color Urine Appearance (Clear) Urine pH (5.0-8.0) Ur Specific [place] (1.001-1.035) Urine Protein (Negative) Urine Glucose (UA) (Negative) Urine Ketones (Negative) Urine Blood (Negative) Urine Nitrite (Negative) Urine Bilirubin (Negative) Urine Urobilinogen (<2.0) mg/dL Ur Leukocyte Esterase (Negative) Urine HCG, Qual Not Detected (Not Detectd) 03/18/19 Range/Units 06:53 WBC (3.8-10.6) k/uL RBC (3.80-5.40) m/uL Hgb (11.4-16.0) gm/dL Hct (34.0-46.0) % MCV (80.0-100.0) fL MCH (25.0-35.0) pg MCHC (31.0-37.0) g/dL RDW (11.5-15.5) % Plt Count (150-450) k/uL Neutrophils % % Lymphocytes % % Monocytes % % Eosinophils % % Basophils % % Neutrophils # (1.3-7.7) k/uL Lymphocytes # (1.0-4.8) k/uL Monocytes # (0-1.0) k/uL Eosinophils # (0-0.7) k/uL Basophils # (0-0.2) k/uL Sodium (137-145) mmol/L Potassium (3.5-5.1) mmol/L Chloride (98-107) mmol/L Carbon Dioxide (22-30) mmol/L Anion Gap mmol/L BUN (7-17) mg/dL Creatinine (0.52-1.04) mg/dL Est GFR (CKD-EPI)AfAm (>60 ml/min/1.73 sqM) Est GFR (CKD-EPI)NonAf (>60 ml/min/1.73 sqM) Glucose (74-99) mg/dL Calcium (8.4-10.2) mg/dL Total Bilirubin (0.2-1.3) mg/dL AST (14-36) U/L ALT (4-34) U/L Alkaline Phosphatase (38-126) U/L Total Protein (6.3-8.2) g/dL Albumin (3.5-5.0) g/dL Amylase (30-110) U/L Lipase (23-300) U/L Urine Color Light Yellow Urine Appearance Clear (Clear) Urine pH 6.5 (5.0-8.0) Ur Specific [place] 1.006 (1.001-1.035) Urine Protein Negative (Negative) Urine Glucose (UA) Negative (Negative) Urine Ketones Negative (Negative) Urine Blood Negative (Negative) Urine Nitrite Negative (Negative) Urine Bilirubin Negative (Negative) Urine Urobilinogen <2.0 (<2.0) mg/dL Ur Leukocyte Esterase Negative (Negative) Urine HCG, Qual (Not Detectd) Disposition Clinical Impression: Abdominal pain Disposition: HOME SELF-CARE Condition: Good Instructions (If sedation given, give patient instructions): Abdominal Pain (ED) Additional Instructions: Please follow up with primary care in 1-2 days. If you have any worsening symptoms return to the emergency department. Is patient prescribed a controlled substance at d/c from ED?: No Referrals: Titus Marcano MD [Primary Care Provider] - 1-2 days Time of Disposition: 09:25
[2019-03-18 08:21] LABS: Basophils % (A) 0 %; Eosinophils # (A) 0.1 k/uL (0-0.7); Eosinophils % (A) 2 %; HCT 37.6 % (34.0-46.0); HGB 12.2 gm/dL (11.4-16.0); Lymphocytes # (A) 1.3 k/uL (1.0-4.8); Lymphocytes % (A) 27 %; MCH 30.2 pg (25.0-35.0); MCHC 32.3 g/dL (31.0-37.0); MCV 93.6 fL (80.0-100.0); Mean Platelet Volume 7.3; Monocytes # (A) 0.3 k/uL (0-1.0); Monocytes % (A) 5 %; Neutrophils # (A) 3.1 k/uL (1.3-7.7); Neutrophils % (A) 63 %; Platelet Count 249 k/uL (150-450); RBC 4.02 m/uL (3.80-5.40); RDW 13.4 % (11.5-15.5); WBC 4.9 k/uL (3.8-10.6)
[2019-03-18 08:23] LABS: Appearance,Urine Clear (Clear); Bilirubin,Urine Negative (Negative); Blood,Urine Negative (Negative); Color,Urine Light Yellow; Glucose,Urine (UA) Negative (Negative); Ketones,Urine Negative (Negative); Leukocyte Esterase,Urine Negative (Negative); Nitrite,Urine Negative (Negative); PH, Urine 6.5 (5.0-8.0); Protein,Urine Negative (Negative); Specific Gravity,Urine 1.006 (1.001-1.035); Urobilinogen,Urine <2.0 mg/dL (<2.0)
[2019-03-18 08:37] LABS: ALT 33 U/L (4-34); AST 38 U/L (14-36); African American GFR (CKD) >90 (>60 ml/min/1.73 sqM); Albumin 3.5 g/dL (3.5-5.0); Alkaline Phosphatase 52 U/L (38-126); Amylase 66 U/L (30-110); Anion Gap 5 mmol/L; Blood Urea Nitrogen 20 mg/dL (7-17); Calcium 8.9 mg/dL (8.4-10.2); Carbon Dioxide 28 mmol/L (22-30); Chloride 108 mmol/L (98-107); Glucose 79 mg/dL (74-99); Non-African American GFR(CKD) >90 (>60 ml/min/1.73 sqM); Potassium 4.3 mmol/L (3.5-5.1); Sodium 141 mmol/L (137-145); Total Bilirubin 1.2 mg/dL (0.2-1.3)
--- NOTE | 2019-03-18 09:07 | CT ---
EXAMINATION TYPE: CT abdomen pelvis w con DATE OF EXAM: 03/18/2019 HISTORY: Abdominal pain acute onset this morning. CT DLP: 490.1mGycm Automated Exposure Control for Dose Reduction was Utilized. CONTRAST: CT scan of the abdomen and pelvis is performed without oral but with IV Contrast, patient injected wi th 100 mL of Isovue 300. COMPARISON: None. FINDINGS: LUNG BASES: Partial visualization of bilateral breast implants.. LIVER/GB: Liver has a subcentimeter hypodense lesion axial image 14 too small to further characterize . There is additional more vague area of enhancement posterior right hepatic lobe that becomes isoden se on delayed phase images. Differential includes transient hepatic attenuation difference versus foc al mass such as FNH or adenoma as slightly more masslike on coronal images. Nonemergent multiphase sophia protocol CT or MRI follow-up could be performed to further evaluate. PANCREAS: No significant abnormality is seen. SPLEEN: No significant abnormality is seen. ADRENALS: No significant abnormality is seen. KIDNEYS: Symmetric cortical medullary uptake and excretion without hydronephrosis seen bilaterally. BOWEL: Low-lying cecum to the right pelvis. No suspicious small or large bowel dilatation. Surgical c hanges epigastric region from gastric bypass surgery. Suboptimal evaluation without enteric contrast. Patient also has very little intra-abdominal fat. UTERUS/ADNEXA: Heterogeneous anteverted somewhat prominent uterus. Possible underlying fibroids. LYMPH NODES: No greater than 1cm abdominal or pelvic lymph nodes are appreciated. OSSEOUS STRUCTURES: No significant abnormality is seen. OTHER: Focal defect in the rectus muscles with overlying curvilinear density axial image 41 could ref lect eventration or treated ventral wall hernia. There is anterior horizontal scar likely from over the pelvis axial image 70, there is pers istent rectus defect at this level coronal image 19 in the midline. This may be more recent in age, c orrelate clinically. IMPRESSION: No bowel obstruction. No significant acute finding is seen to account for patient's clini ki symptoms.
[2019-03-18 10:03] VITALS: BP 131/74; PULSE 71; RESP 16
== END 2019-03-18 10:02 | disposition home or self-care (01) ==
LOC: EC 06:05
DX: R10.30 Lower abdominal pain, unspecified (principal); E86.0 Dehydration; J45.909 Unspecified asthma, uncomplicated; Z98.84 Bariatric surgery status; Z98.51 Tubal ligation status; Z79.899 Other long term (current) drug therapy
CPT/HCPCS: 36415; 74177; 80053; 81003; 81025; 82150; 83690; 85025; 96361; 96374; 99284

== ENCOUNTER → 2019-03-27 | Outpatient (CLI) | payer BC | END | disposition home or self-care (01) | LOC: RADMAMWWP 08-13 12:56 | PROVIDERS: ATTEND Obstetrics & Gynecology | DX: Z53.9 Procedure and treatment not carried out, unspecified reason (principal) | CPT/HCPCS: 77067 ==

== ENCOUNTER → 2020-12-29 | Outpatient (CLI) | payer BC ==
--- NOTE | 2020-12-30 14:28 | MM ---
Reason for exam: screening (asymptomatic). Last mammogram was performed 1 year and 9 months ago. History: Implants in both breasts. Reductions of both breasts. Physical Findings: A clinical breast exam by your physician is recommended on an annual basis and results should be correlated with mammographic findings. MG Screening Mammo Implant/CAD Bilateral CC, MLO, and ID view(s) were taken. Prior study comparison: March 27, 2019, bilateral MG screening mammo implant/CAD. August 01, 2017, bilateral MG screening mammo w CAD. There are scattered fibroglandular densities. There is no discrete abnormality. Bilateral breast prothesis. No significant changes when compared with prior studies. ASSESSMENT: Negative, BI-RAD 1 RECOMMENDATION: Routine screening mammogram of both breasts in 1 year.
== END | disposition home or self-care (01) ==
LOC: RADMAMWWP 10:40
PROVIDERS: ATTEND Family Medicine
DX: Z12.31 Encounter for screening mammogram for malignant neoplasm of breast (principal)
CPT/HCPCS: 77067

== ENCOUNTER → 2022-02-28 | Outpatient (CLI) | payer BC ==
--- NOTE | 2022-03-03 08:21 | MM ---
Reason for Exam: Screening (asymptomatic). Last mammogram was performed 1 year(s) and 2 month(s) ago. Patient History: Menarche at age 11. First Full-Term at age 25. Patient has history of breast feeding. Bilateral Reduction. Bilateral Implants. Risk Values: Lupe 5 year model risk: 1.0%. NCI Lifetime model risk: 10.3%. Prior Study Comparison: 08/01/2017 Bilateral Screening Mammogram, [facility]. 03/27/2019 Bilateral Screening Mammogram, [facility]. 12/29/2020 Bilateral Screening Mammogram, [facility]. Tissue Density: There are scattered fibroglandular densities. Findings: Analyzed By CAD. There are subpectoral bilateral breast implants redemonstrated. There is no suspicious group of microcalcifications or new suspicious mass in either breast. Overall Assessment: Benign, BI-RAD 2 Management: Screening Mammogram of both breasts in 1 year. A clinical breast exam by your physician is recommended on an annual basis and results should be correlated with mammographic findings. Electronically signed and approved by: Jean Claude Morris M.D.
== END | disposition home or self-care (01) ==
LOC: RADMAMWWP 14:58
PROVIDERS: ATTEND Family Medicine
DX: Z12.31 Encounter for screening mammogram for malignant neoplasm of breast (principal); Z98.82 Breast implant status
CPT/HCPCS: 77067

== ENCOUNTER → 2022-07-06 | Outpatient (CLI) | payer BC ==
[2022-07-06 13:59] LABS: INR 0.9 (<1.2); Partial Thromboplastin Time 22.9 sec (22.0-30.0); Prothrombin Time 9.9 sec (9.0-12.0)
[2022-07-06 20:56] LABS: HCT 41.3 % (37.2-46.3); HGB 13.3 g/dL (12.0-15.0); MCH 32.1 pg (27.0-32.0); MCHC 32.2 g/dL (32.0-37.0); MCV 99.8 fL (80.0-97.0); Mean Platelet Volume 10.5 fL (9.5-12.2); NRBC Per 100 WBC 0 /100 WBCS (0.0-0.0); Platelet Count 247 X 10*3/uL (140-440); RBC 4.14 X 10*6/uL (4.10-5.20); RDW 13.2 % (11.5-14.5); WBC 7.09 X 10*3/uL (4.50-10.00)
[2022-07-06 21:53] LABS: Magnesium 2.2 mg/dL (1.5-2.4)
[2022-07-06 21:54] LABS: % Iron Saturation 22.97 (12.00-45.00); African American GFR (CKD) 112.5 (60.0-200.0); Albumin 3.9 g/dL (3.8-4.9); Albumin/Globulin Ratio 1.97 (1.60-3.17); Anion Gap 9.7 mmol/L (10.00-18.00); BUN/Creat Ratio 17.9 Ratio (12.00-20.00); Blood Urea Nitrogen 13.1 mg/dL (9.0-27.0); Calcium 9.1 mg/dL (8.7-10.3); Carbon Dioxide 24.8 mmol/L (20.0-27.5); Ferritin 21.6 ng/mL (10.0-291.0); Non-African American GFR(CKD) 97.1 (60.0-200.0); Potassium 4.4 mmol/L (3.5-5.5); Total Bilirubin 0.9 mg/dL (0.30-1.20); Total Protein 5.9 g/dL (6.2-8.2)
[2022-07-06 22:03] LABS: Prealbumin 15.8 mg/dL (18.0-42.0)
[2022-07-07 13:29] LABS: Zinc, Serum 48 ug/dL (60-130)
== END | disposition home or self-care (01) ==
LOC: LABWHC1 13:12
PROVIDERS: ATTEND Surgery Plastic and Reconstructive Surgery
DX: E66.01 Morbid (severe) obesity due to excess calories (principal); E89.1 Postprocedural hypoinsulinemia; D50.8 Other iron deficiency anemias; K91.2 Postsurgical malabsorption, not elsewhere classified; E44.0 Moderate protein-calorie malnutrition; E44.1 Mild protein-calorie malnutrition; E45 Retarded development following protein-calorie malnutrition; E55.9 Vitamin D deficiency, unspecified; K74.1 Hepatic sclerosis; N19 Unspecified kidney failure; T56.894A Toxic effect of other metals, undetermined, initial encounter; K50.90 Crohn's disease, unspecified, without complications
CPT/HCPCS: 36415; 80053; 82306; 82525; 82607; 82728; 82746; 83036; 83540; 83550; 83735; 83970; 84100; 84134; 84255; 84425; 84443; 84590; 84630; 85027; 85610; 85730

== ENCOUNTER → 2022-07-19 | Outpatient (CLI) | payer BC ==
[2022-07-19 14:50] VITALS: BP 120/66; PULSE 82; TEMP 97.7; BMI 24.7
--- NOTE | 2022-07-19 15:02 | P.HPBAR ---
Bariatric H&P - History & Physicial H&P Date: 07/19/22 History & Physicial: Visit/CC: RYGB F/U Patient initial contact: Initial weight: 124.33 kg Initial weight in pounds: 274.10 Height: 5 ft 1 in Initial BMI: 51.7 Last weight: Current weight: 59.421 kg Current weight in pounds: 131.00 Current BMI: 24.7 Lilly body weight (based on NIH guidelines): 47.627 kg Excess body weight loss: 84.6% The patient is a 47 year-old F who presents for Bariatric Assessment. She is losing moderate hair. She is having moderate loss of energy. "I feel so bad." She has severe fatigue. She was on a liver detox. Recommend repeat labs, Past Medical History Past Medical History: Asthma, Thyroid Disorder Additional Past Medical History / Comment(s): HX OF FREQUENT SWELLING FEET AND ANKLES. hyperthyroid- no meds, EGD with dilitation Nov 2016, History of Any Multi-Drug Resistant Organisms: None Reported Past Surgical History: Bariatric Surgery, Breast Surgery, Section, Tu bal Ligation, Uterine Ablation Additional Past Surgical History / Comment(s): lap band 2009-removed 09/2016, GASTRIC BYPASS, bilateral breast lift/reduction/implants (February 2018) panniculectomy/abdominoplasty August 2018 Past Anesthesia/Blood Transfusion Reactions: Motion Sickness, Postoperative Nausea & Vomiting (PONV) Additional Past Anesthesia/Blood Transfusion Reaction / Comm: STATES long time to wake up Past Psychological History: No Psychological Hx Reported Additional Psychological History / Comment(s): . Smoking Status: Never smoker Past Alcohol Use History: Rare Additional Past Alcohol Use History / Comment(s): . Past Drug Use History: None Reported - Past Family History Father Family Medical History: Diabetes Mellitus Additional Family Medical History / Comment(s): morbidly obese, joint replacements bilateral knee, wheelchair bound due to weight/joint problems Mother Family Medical History: No Reported History Additional Family Medical History / Comment(s): morbidly obese, joint replacements bilateral knee Sister(s) Family Medical History: Diabetes Mellitus Additional Family Medical History / Comment(s): sister #1= no hx. sister #2= Frequent BM's (possible IBS) Surgical - Exam Vital Signs Temp Pulse BP 97.7 F 82 120/66 07/19/22 14:38 07/19/22 14:38 07/19/22 14:38 Bariatric Checklist Checklist: Plan: Checklist: EGD: 1. Hiatal hernia: 2. H. Pylori: HgbA1c: Vitamin D: Smoking: Never smoker Primary care physician referral: Titus Marcano Psychiatry clearance: Cardiology clearance: Sleep study: Diet journal: VTE risk score: VTE risk level: Rehab needs at discharge:
== END ==
LOC: BARWHC3 14:07
PROVIDERS: ATTEND Surgery Plastic and Reconstructive Surgery
DX: E66.01 Morbid (severe) obesity due to excess calories (principal); J45.909 Unspecified asthma, uncomplicated; Z68.24 Body mass index [BMI] 24.0-24.9, adult
CPT/HCPCS: 99211

== ENCOUNTER → 2023-08-23 | Outpatient (CLI) | payer BC ==
--- NOTE | 2023-08-23 21:21 | MM ---
Reason for Exam: Hx of breast augmentation, asymptomatic. Last mammogram was performed 1 year(s) and 6 month(s) ago. Patient History: Menarche at age 11. First Full-Term at age 25. Patient has history of breast feeding. Bilateral Reduction. Bilateral Implants. Last menstrual period: 08/04/2023 Risk Values: Lupe 5 year model risk: 1.0%. NCI Lifetime model risk: 10.0%. Prior Study Comparison: 03/27/2019 Bilateral Screening Mammogram, [facility]. 12/29/2020 Bilateral Screening Mammogram, [facility]. 02/28/2022 Bilateral MG screening mammo implant/CAD, [facility]. Tissue Density: There are scattered areas of fibroglandular density. Findings: Analyzed By CAD. Bilateral retropectoral silicone implants. There is no suspicious group of microcalcifications or new suspicious mass in either breast. Overall Assessment: Benign, BI-RAD 2 Management: Screening Mammogram of both breasts in 1 year. . Patient should continue monthly self-breast exams. A clinical breast exam by your physician is recommended on an annual basis. This exam should not preclude additional follow-up of suspicious palpable abnormalities. Note on Lupe scores and lifetime risk: 1. A Lupe score greater than 3% is considered moderate risk. If this is the case, consider specialist referral to assess eligibility for a risk reducing agent. 2. If overall lifetime risk for the development of breast cancer is 20% or higher, the patient may qualify for future screening with alternating mammogram and breast MRI. Electronically signed and approved by: Soni Chauhan M.D. Radiologist
== END | disposition home or self-care (01) ==
LOC: RADMAMWWP 13:10
PROVIDERS: ATTEND Family Medicine
DX: Z12.31 Encounter for screening mammogram for malignant neoplasm of breast (principal); Z98.82 Breast implant status
CPT/HCPCS: 77067

== ENCOUNTER → 2023-11-14 | Outpatient (CLI) | payer BC ==
[2023-11-14 10:57] LABS: T4, Free (Free Thyroxine) 0.88 ng/dL (0.80-1.80)
== END | disposition home or self-care (01) ==
LOC: LABWHC1 07:09
PROVIDERS: ATTEND Family Medicine
DX: Z79.899 Other long term (current) drug therapy
CPT/HCPCS: 36415; 82306; 82607; 82746; 84439; 84443; 84481

== ENCOUNTER → 2024-03-24 | Outpatient (CLI) | payer BC ==
[2024-03-24 11:10] LABS: T4, Free (Free Thyroxine) 0.89 ng/dL (0.80-1.80)
== END | disposition home or self-care (01) ==
LOC: LABWHC1 07:11
PROVIDERS: ATTEND Family Medicine
DX: E07.9 Disorder of thyroid, unspecified (principal); E55.9 Vitamin D deficiency, unspecified; R53.83 Other fatigue
CPT/HCPCS: 36415; 82306; 82533; 82626; 84439; 84443; 84481

== ENCOUNTER → 2024-09-26 | Outpatient (CLI) | payer BC ==
[2024-09-26 10:39] LABS: T4, Free (Free Thyroxine) 0.75 ng/dL (0.80-1.80)
[2024-09-26 11:06] LABS: ALT 12 U/L (8-44); AST 25 U/L (13-35); Albumin 4.1 g/dL (3.8-4.9); Albumin/Globulin Ratio 2.56 Ratio (1.60-3.17); Alkaline Phosphatase 55 U/L (41-126); Anion Gap 8.80 mmol/L (4.00-12.00); Blood Urea Nitrogen 9.7 mg/dL (9.0-27.0); Calcium 7.1 mg/dL (8.7-10.3); Carbon Dioxide 26.2 mmol/L (21.6-31.8); Chloride 106 mmol/L (96-109); Globulin 1.6 g/dL (1.6-3.3); Glucose 85 mg/dL (70-110); Potassium 4.1 mmol/L (3.5-5.5); Sodium 141 mmol/L (135-145); Total Protein 5.7 g/dL (6.2-8.2)
== END | disposition home or self-care (01) ==
LOC: LABWHC1 07:21
DX: Z00.00 Encounter for general adult medical examination without abnormal findings (principal); E27.9 Disorder of adrenal gland, unspecified; E34.9 Endocrine disorder, unspecified; E03.9 Hypothyroidism, unspecified; N94.3 Premenstrual tension syndrome; E55.9 Vitamin D deficiency, unspecified; D51.8 Other vitamin B12 deficiency anemias; E56.9 Vitamin deficiency, unspecified; R79.9 Abnormal finding of blood chemistry, unspecified; R94.6 Abnormal results of thyroid function studies; R53.83 Other fatigue
CPT/HCPCS: 36415; 80053; 82626; 82670; 84140; 84270; 84403; 84439; 84443; 84481; 84482